=== PATIENT | female | born 1950 | race Caucasian/White ===

== ENCOUNTER 2017-07-21 17:19 | Observation (INO) | payer MEDICARE, OTHER ==
[2017-07-21] MEDS ORDERED: NITROGLYCERIN OINT 1 INCH/GM PACKET TOPICAL STA (18:07)
[2017-07-21] MEDS ORDERED: ASPIRIN 81 MG PO STA (18:07)
--- NOTE | 2017-07-21 18:10 | ED ---
General Adult HPI - General Chief complaint: Chest Pain Stated complaint: Chest pain Time Seen by Provider: 07/21/17 17:59 Source: patient, RN notes reviewed Mode of arrival: ambulatory Limitations: no limitations - History of Present Illness Initial comments: Patient is a pleasant 67-year-old female presenting to the emergency department complaining of chest discomfort. Onset of symptoms was a couple hours ago. Discomfort lasted around 1 hour and then resolved. Patient then had indigestion type sensation in her stomach which is mild at this time. No associated dyspnea, nausea, or vomiting. Chest discomfort felt more sharp earlier without radiation. No chest discomfort at this time. - Related Data Home Medications Medication Instructions Recorded Confirmed Ascorbic Acid [Vitamin C] 500 mg PO DAILY 02/10/14 07/21/17 B 17 1 tab PO TID 02/10/14 07/21/17 Ubidecarenone [Co Q-10] 100 mg PO DAILY 02/10/14 07/21/17 Anastrozole [Arimidex] 1 mg PO DAILY@1200 07/21/17 07/21/17 Reinbeck-3 Fatty Acids/Fish Oil [Fish 1 cap PO DAILY 07/21/17 07/21/17 Oil 1,000 mg Softgel] Allergies Allergy/AdvReac Type Severity Reaction Status Date / Time No Known Allergies Allergy Verified 07/21/17 17:45 Review of Systems ROS Statement: Those systems with pertinent positive or pertinent negative responses have been documented in the HPI. ROS Other: All systems not noted in ROS Statement are negative. Constitutional: Denies: fever Eyes: Denies: eye pain ENT: Denies: ear pain Respiratory: Denies: cough, dyspnea Cardiovascular: Reports: chest pain Endocrine: Denies: fatigue Gastrointestinal: Denies: vomiting Genitourinary: Denies: dysuria Musculoskeletal: Denies: back pain Skin: Denies: rash Neurological: Denies: weakness Past Medical History Past Medical History: Cancer, Chest Pain / Angina, Hyperlipidemia, Myocardial Infarction (CA), Syncope Additional Past Medical History / Comment(s): PT HAD CA SEPTEMBER 2012, R breast ca DIAGNOSED 2011, PT HAD SYNCOPAL EPISODE WITH CA. Last Myocardial Infarction Date:: 10/04/12 History of Any Multi-Drug Resistant Organisms: None Reported Past Surgical History: Heart Catheterization With Stent, Hysterectomy Additional Past Surgical History / Comment(s): SEPTEMBER 2012 CCATH WITH STENT X1. NECK CYST REMOVED AT AGE 7 YRS. HYSTERECTOMY IN 1995. Past Anesthesia/Blood Transfusion Reactions: No Reported Reaction Additional Past Anesthesia/Blood Transfusion Reaction / Comment(s): PT HAS NEVER HAD BLOOD-SHE IS A JEHOVA WITNESS Date of Last Stent Placement:: 10/04/12 Past Psychological History: No Psychological Hx Reported Smoking Status: Never smoker Past Alcohol Use History: None Reported Past Drug Use History: None Reported - Past Family History Father Family Medical History: Myocardial Infarction (CA) Additional Family Medical History / Comment(s): FATHER AT AGE 69 OF CA. HE WAS A SMOKER. Mother Family Medical History: Myocardial Infarction (CA) Additional Family Medical History / Comment(s): MOTHER WAS 69 YRS OF WHEN SHE OF AN CA. SHE WAS A SMOKER. General Exam Limitations: no limitations General appearance: alert, in no apparent distress Head exam: Present: atraumatic Eye exam: Present: normal appearance, PERRL ENT exam: Present: normal oropharynx Neck exam: Present: normal inspection Respiratory exam: Present: normal lung sounds bilaterally Cardiovascular Exam: Present: regular rate, normal rhythm Expanded Peripheral pulses: 2+: Radial (R), Radial (L), Dorsalis Pedis (R), Dorsalis Pedis (L) GI/Abdominal exam: Present: soft. Absent: distended, tenderness, guarding, rebound, rigid, pulsatile mass Extremities exam: Present: normal inspection. 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 Normal intervals. Normal axis. Borderline septal Q waves. Nonspecific ST-T. Medical Decision Making - Medical Decision Making Patient reevaluated and resting comfortably in bed. Patient and family updated on results and plan. Dr. Velazquez has been paged for admission. Case discussed in detail with Dr. Velazquez, who will admit his patient. No consults at this time. - Lab Data Result diagrams: 07/21/17 17:55 07/21/17 17:55 Lab Results 07/21/17 07/21/17 07/21/17 Range/Units 17:55 17:55 17:55 WBC 7.0 (3.8-10.6) k/uL RBC 4.36 (3.80-5.40) m/uL Hgb 13.1 (11.4-16.0) gm/dL Hct 40.7 (34.0-46.0) % MCV 93.2 (80.0-100.0) fL MCH 30.1 (25.0-35.0) pg MCHC 32.3 (31.0-37.0) g/dL RDW 12.8 (11.5-15.5) % Plt Count 211 (150-450) k/uL Neutrophils % 71 % Lymphocytes % 19 % Monocytes % 6 % Eosinophils % 2 % Basophils % 0 % Neutrophils # 5.0 (1.3-7.7) k/uL Lymphocytes # 1.3 (1.0-4.8) k/uL Monocytes # 0.4 (0-1.0) k/uL Eosinophils # 0.2 (0-0.7) k/uL Basophils # 0.0 (0-0.2) k/uL PT (9.0-12.0) sec INR (<1.2) APTT (22.0-30.0) sec Sodium 142 (137-145) mmol/L Potassium 4.4 (3.5-5.1) mmol/L Chloride 104 (98-107) mmol/L Carbon Dioxide 27 (22-30) mmol/L Anion Gap 11 mmol/L BUN 18 H (7-17) mg/dL Creatinine 0.80 (0.52-1.04) mg/dL Est GFR (CKD-EPI)AfAm 88 (>60 ml/min/1.73 sqM) Est GFR (CKD-EPI)NonAf 76 (>60 ml/min/1.73 sqM) Glucose 119 H (74-99) mg/dL Calcium 9.7 (8.4-10.2) mg/dL Magnesium 2.1 (1.6-2.3) mg/dL Total Bilirubin 0.2 (0.2-1.3) mg/dL AST 39 H (14-36) U/L ALT 27 (9-52) U/L Alkaline Phosphatase 66 (38-126) U/L Total Creatine Kinase 104 (30-135) U/L CK-MB (CK-2) 1.0 (0.0-2.4) ng/mL CK-MB (CK-2) Rel Index 1.0 Troponin I <0.012 (0.000-0.034) ng/mL Total Protein 6.8 (6.3-8.2) g/dL Albumin 4.2 (3.5-5.0) g/dL Amylase 82 (30-110) U/L Lipase 265 (23-300) U/L 07/21/17 Range/Units 17:55 WBC (3.8-10.6) k/uL RBC (3.80-5.40) m/uL Hgb (11.4-16.0) gm/dL Hct (34.0-46.0) % MCV (80.0-100.0) fL MCH (25.0-35.0) pg MCHC (31.0-37.0) g/dL RDW (11.5-15.5) % Plt Count (150-450) k/uL Neutrophils % % Lymphocytes % % Monocytes % % Eosinophils % % Basophils % % Neutrophils # (1.3-7.7) k/uL Lymphocytes # (1.0-4.8) k/uL Monocytes # (0-1.0) k/uL Eosinophils # (0-0.7) k/uL Basophils # (0-0.2) k/uL PT 9.9 (9.0-12.0) sec INR 1.0 (<1.2) APTT 23.6 (22.0-30.0) sec Sodium (137-145) mmol/L Potassium (3.5-5.1) mmol/L Chloride (98-107) mmol/L Carbon Dioxide (22-30) mmol/L Anion Gap mmol/L BUN (7-17) mg/dL Creatinine (0.52-1.04) mg/dL Est GFR (CKD-EPI)AfAm (>60 ml/min/1.73 sqM) Est GFR (CKD-EPI)NonAf (>60 ml/min/1.73 sqM) Glucose (74-99) mg/dL Calcium (8.4-10.2) mg/dL Magnesium (1.6-2.3) mg/dL Total Bilirubin (0.2-1.3) mg/dL AST (14-36) U/L ALT (9-52) U/L Alkaline Phosphatase (38-126) U/L Total Creatine Kinase (30-135) U/L CK-MB (CK-2) (0.0-2.4) ng/mL CK-MB (CK-2) Rel Index Troponin I (0.000-0.034) ng/mL Total Protein (6.3-8.2) g/dL Albumin (3.5-5.0) g/dL Amylase (30-110) U/L Lipase (23-300) U/L - Radiology Data Radiology results: image reviewed (Chest x-ray shows no acute process) Disposition Clinical Impression: Chest pain Disposition: ADMITTED IP TO THIS [facility] Referrals: Henrik Velazquez MD [Primary Care Provider] - 1-2 days Decision Time: 19:43
[2017-07-21 18:20] LABS: Basophils % (A) 0 %; Eosinophils # (A) 0.2 k/uL (0-0.7); Eosinophils % (A) 2 %; HCT 40.7 % (34.0-46.0); HGB 13.1 gm/dL (11.4-16.0); Lymphocytes # (A) 1.3 k/uL (1.0-4.8); Lymphocytes % (A) 19 %; MCH 30.1 pg (25.0-35.0); MCHC 32.3 g/dL (31.0-37.0); MCV 93.2 fL (80.0-100.0); Mean Platelet Volume 7.8; Monocytes # (A) 0.4 k/uL (0-1.0); Monocytes % (A) 6 %; Neutrophils % (A) 71 %; Platelet Count 211 k/uL (150-450); RBC 4.36 m/uL (3.80-5.40); RDW 12.8 % (11.5-15.5)
[2017-07-21 18:29] LABS: Partial Thromboplastin Time 23.6 sec (22.0-30.0); Prothrombin Time 9.9 sec (9.0-12.0)
[2017-07-21 18:31] LABS: Albumin 4.2 g/dL (3.5-5.0); Calcium 9.7 mg/dL (8.4-10.2); Magnesium 2.1 mg/dL (1.6-2.3); Potassium 4.4 mmol/L (3.5-5.1); Total Bilirubin 0.2 mg/dL (0.2-1.3); Total Protein 6.8 g/dL (6.3-8.2)
[2017-07-21 18:45] LABS: Creatine Kinase 104 U/L (30-135)
[2017-07-21 18:58] LABS: Troponin I <0.012 ng/mL (0.000-0.034)
--- NOTE | 2017-07-21 19:12 | XR ---
EXAMINATION TYPE: XR chest 2V DATE OF EXAM: 07/21/2017 COMPARISON: Prior chest 02/10/2014 HISTORY: Chest pain TECHNIQUE: Frontal and lateral views of the chest are obtained. FINDINGS: There is no focal air space opacity, pleural effusion, or pneumothorax seen. The cardiac silhouette size is within normal limits. There are overlying cardiac leads and the patient is rotated . The osseous structures are intact. IMPRESSION: No acute cardiopulmonary process.
[2017-07-21] MEDS ORDERED: NITROGLYCERIN SL TABS 0.4 MG TAB SUBLINGUAL PRN (19:43)
[2017-07-21] MEDS ORDERED: FAMOTIDINE 20 MG/2 ML VIAL IV STA (20:59)
--- NOTE | 2017-07-21 21:51 | US ---
EXAMINATION TYPE: US abdomen complete DATE OF EXAM: 07/21/2017 COMPARISON: NONE CLINICAL HISTORY: pain. Pt states generalized ABD pain and malaise EXAM MEASUREMENTS: Liver Length: 14.2 cm Gallbladder Wall: 0.3 cm CBD: 0.3 cm Spleen: 10.7 cm Right Kidney: 11.6 x 4.0 x 4.1 cm Left Kidney: 9.3 x 4.9 x 4.5 cm Pancreas: Solid, irregular mass at panc head= 5.0 x 3.7 x 4.9 cm Liver: Multiple, hypoechoic lesions scattered throughout, largest right anterior lobe near dome= 4.9 x 4.1 cm and liver shows coarse echotexture possibly due to hepatocellular disease Gallbladder: Contracted, pt not NPO Evidence for sonographic Rogers's sign: No CBD: wnl Spleen: wnl Right Kidney: Mild hydro and cortical measured differentiation is maintained. Left Kidney: Mild hydronephrosis suspected, cortical medullary differentiation maintained. Upper IVC: wnl Abd Aorta: wnl There is no ascites. IMPRESSION: Findings suggestive of pancreatic carcinoma with metastasis to the liver
[2017-07-21 23:15] VITALS: BMI 27.2
[2017-07-22 01:26] LABS: Creatine Kinase 84 U/L (30-135)
[2017-07-22] MEDS: NITROGLYCERIN OINT 1 INCH/GM PACKET TOPICAL SCH ×4 (01:27→17:38)
[2017-07-22 01:39] LABS: Creatine Kinase MB 0.7 ng/mL (0.0-2.4); Troponin I <0.012 ng/mL (0.000-0.034)
[2017-07-22 06:15] LABS: Cholesterol 246 mg/dL (<200); HDL Cholesterol 52 mg/dL (40-60); LDL Cholesterol,Calculated 174 mg/dL (0-99); Triglycerides 101 mg/dL (<150)
[2017-07-22 06:44] LABS: Creatine Kinase MB 0.7 ng/mL (0.0-2.4); Troponin I 0.013 ng/mL (0.000-0.034)
[2017-07-22] MEDS ORDERED: ASPIRIN 325 MG TAB PO SCH (09:00)
--- NOTE | 2017-07-22 15:02 | P.PN ---
Progress Note - Text Consult dictated Impression: 1- Pancreatic head mass with multiple liver lesions: Pancreatic Ca with Liver mets V/S Metastatic Breast Ca to Pancreas & liver. 2- R Breast Cancer, diagnosed 2011> declined surgical intervention > Started on Tamoxifen> Arimidex, plus Holistic treatment approach in [place] with High dose IV vitamin-C and Cantrel. Rec: 1- Reviewed U/S of abdomen findings with patient, daughter & grand daughter at bedside 2- Discussed likely malignancy: Pancreatic V/S metastatic Breast 3- CT Scan of CAP advised > she agrees 4- Advised CT-guided Bx of liver lesion > she declined due to scare about spreading cancer 5- Obtain CA19-9 and CA15-3 6- Can be discharged after CT Scan performed, will follow as out-patient and schedule Bx if she agrees to ( has to wait till after 07/27 due to ASA given this AM) I answered all questions/concerns
--- NOTE | 2017-07-22 15:52 | CONS ---
CONSULTATION DATE OF CONSULT: July 22, 2017. ADMITTING PHYSICIAN: Dr. Velazquez. REASON FOR CONSULTATION: Suspected malignancy. HISTORY OF ILLNESS: Lora is a pleasant 67-year-old female with prior history of right-sided breast cancer diagnosed in 2011. Then, the patient declined any local intervention. No surgery or radiation or systemic therapy performed locally. She opted to seek holistic alternative in [place], which she has been traveling to frequently. She was treated with endocrine therapy utilizing tamoxifen and more recently told tamoxifen was "not working." Thus, she was switched to Arimidex. In addition, she has received intravenous infusion of high-dose vitamin C as well as Nguyễn. The patient presented to the emergency room with abdominal pain of 1-2 days duration only. The pain is in the epigastric region, not radiating. She reported having similar discomfort 2 months ago which resolved spontaneously. She denies any anorexia or weight loss. No nausea or vomiting. No changes in bowel habits or any other GI symptoms. Ultrasound of the abdomen done in the emergency room revealed a pancreatic head mass measuring 5 cm as well as multiple liver lesions, the largest is in the right anterior lobe dome and near dome measuring 4.9 x 4.1 cm. The patient denies any knowledge of any prior pancreatic or hepatic abnormalities. Denies any history of liver disease. PAST MEDICAL HISTORY: 1. Right-sided breast cancer as stated above. 2. History of chest pain/angina without documented coronary artery disease. 3. Hyperlipidemia. PAST SURGICAL HISTORY: Coronary angiography and had a hysterectomy. CURRENT MEDICATIONS: Reviewed with the patient. SOCIAL HISTORY: The patient is a lifetime nonsmoker. Denies any excessive use of alcohol. FAMILY HISTORY: Noncontributory. REVIEW OF SYSTEMS: Abdominal pain as stated and no anorexia or weight loss or constitutional signs or symptoms of malignancy. No chest pain, shortness of breath. GI has symptoms of the abdominal pain. No polyuria, dysuria or gross hematuria. No musculoskeletal discomfort, focal weakness or numbness in the upper or lower extremities. EXAMINATION: The patient appeared alert and oriented. Skin is warm and dry. Hair distribution within normal for age and gender. He appeared to be healthy and well built. Blood pressure was 129/73, pulse is 77 and regular, respiratory rate was 16, not labored. Temperature was 98.1. There is no pathologic, cervical, supraclavicular, infraclavicular, or axillary lymphadenopathy. Trachea was in midline. Chest was clear with good air exchange bilaterally. HEART: Sounds are normal S1 and S2. There was no S3, rubs, or murmurs auscultated. Abdomen was soft with moderate epigastric tenderness. No rebound. The liver and spleen were not clinically palpable. No masses tenderness or inguinal lymphadenopathy. Breast examination was not performed. The patient choice. Neurologic examination showed no focal motor or sensory deficits. Cranial nerves 2-12 unremarkable. IMPRESSION: 1. Pancreatic head mass with multiple liver lesions. The finding is suspicious for either pancreatic carcinoma with liver metastases or metastatic breast cancer to both pancreas and liver, that later is more clinically suspected given lack of constitutional symptoms normally associated with metastatic pancreatic carcinoma. 2. Right-sided breast cancer diagnosed in 2011. She declined conventional therapy and opted for a holistic approach given in [place] in the form of high-dose intravenous vitamin C and Nguyễn in addition to an endocrine therapy with tamoxifen that was recently changed to Arimidex. 3. History of coronary artery disease, stable. RECOMMENDATION: 1. I reviewed ultrasound of the abdomen findings with the patient's daughter and granddaughter at the bedside. 2. Discussed the likely cause of malignancy either pancreatic versus metastatic breast cancer. 3. I recommended a CT scan of the chest, abdomen, and pelvis. The patient agrees. 4. Advice CT-guided biopsy of liver lesion. She strongly declined alleging worry about the biopsy needle spreading the cancer, the patient was reassured that spreading the cancer thru fine-needle biopsy is highly improbable. However, she insists on declining any biopsies stating that even if cancer was diagnosed, she is likely not to take any other treatment other than holistic approach given in [place]. 5. Obtain CA-19-9 and CA-15-3. 6. The patient can be discharged after a CT scan performed. 7. We will follow as an outpatient basis to schedule a biopsy if she agrees to. However, any intervention has to wait until after July 27 due to aspirin given as early as this morning. I answered the patient's family's questions and concerns to their satisfaction. Thank you for asking the privilege to participate in her care. Sincerely, MARLON / RADHAN: [id number] /
[2017-07-22 16:28] VITALS: BP 124/68; PULSE 86; RESP 14; TEMP 97.7
[2017-07-22] MEDS: IOPAMIDOL-300 CONTRAST 30 ML VIAL (ORAL USE) PO PRN ×2 (16:35→17:33)
--- NOTE | 2017-07-22 20:28 | HP ---
HISTORY AND PHYSICAL CHIEF COMPLAINT: Chest and abdominal pain. HISTORY OF PRESENT ILLNESS: This is another admission for this 67-year-old white female. She has a history of breast cancer. She has been receiving homeopathic treatment in [place]. She has gone quite a few years without any evidence of recurrence, which would leave one to question the accuracy of the original diagnosis. She came into the emergency room with complaint of chest and epigastric discomfort. She has had no fever, chills, cough, hemoptysis, orthopnea, PND, diaphoresis, shortness of breath, etc. There was also question of a mass in the pancreas. REVIEW OF SYSTEMS: Otherwise unremarkable. She has had no vomiting, diarrhea, melena, etc. Past medical history, family history, personal history are all otherwise unremarkable and noncontributory. PHYSICAL EXAMINATION: Blood pressure is 140/78 with a pulse of 62, respirations 19. She is afebrile. In general, she appeared to be well-developed, well-nourished, in no acute distress. Skin color is normal. Skin is warm, dry. Lymph nodes not enlarged. Head, ears, eyes, nose, mouth, and throat were normal and neck veins not distended. Thyroid is not enlarged. Chest is clear. Cardiac exam is normal. Abdomen is soft, nontender. IMPRESSION: 1. Chest pain. 2. Epigastric pain. 3. Possible mass in the pancreas. 4. History of breast cancer. PLAN: 1. Bed rest. 2. IV fluids. 3. Oncology consult. 4. Cardiology consult. MMYAAKOV / RADHAN: [id number] /
--- NOTE | 2017-07-22 21:36 | CT ---
EXAMINATION TYPE: CT ChestAbdPelvis wo con DATE OF EXAM: 07/22/2017 COMPARISON: 12/18/2012 HISTORY: Pancreatic mass. Right breast CA with liver mets CT DLP: 487.7 mGycm. Automated Exposure Control for Dose Reduction was Utilized. TECHNIQUE: CT scan of the thorax, abdomen and pelvis is performed without IV contrast. FINDINGS: RIGHT BREAST: 1.) The previously seen upper outer quadrant right breast mass now measures 3.0 x 2.7 cm, previously measured 2.8 x 2.5 cm in axial cross section. 2.) There is an associated right axillary lymph node currently which measures 2.7 x 1.6 cm in axial c ross section; this lymph node was subcentimeter size on the prior study. 3.) Finally, there is a lowe r outer quadrant 2.3 x 1.7 cm right breast mass, which is new since the prior CT. LUNGS: The lungs are clear and the airways are unremarkable. PLEURAL SPACES: Negative. MEDIASTINUM: No hilar or mediastinal adenopathy. Coronary calcifications noted, but no cardiomegaly o r pericardial effusion. LIVER/GB: High in the dome of the liver and anterior segment right hepatic lobe there is a 5.0 x 4.5 x 3.5 cm hypodense lesion, new since the previous study and most consistent with secondary neoplasm. There are a few scattered peripheral hypodense lesions elsewhere which are not conspicuous, but likel y reflect secondary neoplasm. PANCREAS: There is prominence to the pancreatic head consistent with the known mass, but its margins cannot be ascertained with the surrounding structures. There is, however, no biliary tree obstruction or pancreatic ductal obstruction. SPLEEN: No significant abnormality is seen. ADRENALS: No significant abnormality is seen. KIDNEYS: No significant abnormality is seen. Bilateral parapelvic cysts are incidentally noted. BOWEL: No significant abnormality is seen. GENITAL ORGANS: No gross abnormality seen. LYMPH NODES: No greater than 1cm abdominal or pelvic lymph nodes are appreciated. OSSEOUS STRUCTURES: No significant abnormality is seen. OTHER: No significant additional abnormality is seen. IMPRESSION: 1. RIGHT BREAST MASSES WITH ADENOPATHY. 2. PANCREATIC MASS WITH LIVER METASTASES. 3. CORONARY CALCIFICATIONS.
[2017-07-23 11:39] LABS: Cancer Antigen 19-9 16.7 U/mL (0.0-34.9)
[2017-07-23] MEDS ORDERED: ANASTROZOLE 1 MG TAB PO SCH (12:00)
--- NOTE | 2017-07-23 17:11 | DS ---
DISCHARGE SUMMARY DATE OF SERVICE: 07/22/2017. CHIEF COMPLAINT: Chest and abdominal pain. HISTORY OF PRESENT ILLNESS AND PHYSICAL EXAM: Details of this lady's history and physical can be found in the initial workup. LABORATORY STUDIES: While she was in the hospital, she had laboratory studies details of which can be found in the laboratory section of her chart. COURSE IN HOSPITAL: After admission, she was placed on bedrest, started on intravenous fluids and she enzymes and EKGs were unremarkable, but she did complain of epigastric pain and there was a report that there was a mass in the pancreas. She was seen by oncology, who recommended a biopsy, which can be done as an outpatient. The patient want to be discharged on the . FINAL DIAGNOSES: 1. Chest pain. 2. Nodule in the pancreas. 3. History of carcinoma of the breast. OPERATIONS: None. CONSULTATIONS: Oncology. She is improved. MMODL / RADHAN: [id number] /
== END 2017-07-22 18:55 | disposition home or self-care (01) ==
LOC: EC 17:19 → 3SUR 19:43
PROVIDERS: ADMIT Family Medicine; ATTEND Family Medicine
DX: R07.89 Other chest pain (principal); R10.13 Epigastric pain; K86.9 Disease of pancreas, unspecified; K76.9 Liver disease, unspecified; Z85.3 Personal history of malignant neoplasm of breast; E78.5 Hyperlipidemia, unspecified; I25.10 Atherosclerotic heart disease of native coronary artery without angina pectoris; Z95.5 Presence of coronary angioplasty implant and graft; I25.2 Old myocardial infarction; Z79.811 Long term (current) use of aromatase inhibitors; Z82.49 Family history of ischemic heart disease and other diseases of the circulatory system
CPT/HCPCS: 99285 ×2; 96374 ×2; 36415; 93005; 80061; 80053; 86300; 82150; 82550 ×2; 82553 ×2; 83690; 83735; 84484 ×2; 85025; 85610; 85730; 86301; 71046; 76700; 71250; 74176; G0378 ×2

== ENCOUNTER → 2018-01-11 | Outpatient (CLI) | payer MEDICARE, OTHER ==
--- NOTE | 2018-01-11 11:35 | CT ---
EXAMINATION TYPE: CT abdomen w con DATE OF EXAM: 01/11/2018 HISTORY: RUQ pain and hepatomegaly per order. CT DLP: 678mGycm Automated Exposure Control for Dose Reduction was Utilized. CONTRAST: CT scan of the abdomen is performed with oral and with IV Contrast, patient injected with 100 mL of I sovue 300. COMPARISON: Same-day gallbladder ultrasound. CT from July 22, 2017 FINDINGS: LUNG BASES: No significant abnormality is appreciated. LIVER/GB: Liver is larger in size versus prior CT. There are now innumerable heterogeneous hypodense lesions scattered throughout the liver with marked increase in number from prior exam. For reference a 4.9 cm lesion on long axis is seen in the caudate lobe axial image 19. For reference anterior left hepatic lobe lesion measures 4.2 cm long axis axial image 20. Gallbladder is contracted. There is better visualization of bao hepatic adenopathy due to IV contrast. There is mass effect of narrowing near the portal vein confluence but patency identified. PANCREAS: No significant abnormality is seen. SPLEEN: No significant abnormality is seen. ADRENALS: No significant abnormality is seen. KIDNEYS: Prominent parapelvic cysts bilaterally left larger than right are redemonstrated. BOWEL: No significant abnormality is seen. LYMPH NODES: Perihepatic adenopathy noted as detailed above.. OSSEOUS STRUCTURES: No significant abnormality is seen. OTHER: Mild to moderate calcified plaque of distal aorta extends into branch vessels. IMPRESSION: Marked progression in suspected metastatic disease to the liver which is now enlarged. Th ere is bao hepatic metastatic adenopathy also now better visualized.
--- NOTE | 2018-01-11 16:04 | US ---
EXAMINATION TYPE: US gallbladder DATE OF EXAM: 01/11/2018 COMPARISON: CT & US CLINICAL HISTORY: R10.11 Right upper quad pain,R16.0 Hepatomegaly. EXAM MEASUREMENTS: Liver Length: 16.6 cm Gallbladder Wall: 0.5 cm CBD: not visualized Right Kidney: 11.6 x 3.4 x 5.3 cm Pancreas: mass seen at pancreatic head measuring 5.7 x 4.9 x 4.2cm previous may be within the caudat e lobe CT examination. Liver: grossly heterogeneous with innumerable masses, upper limits of normal in size Gallbladder: wall thickening Evidence for sonographic Rogers's sign: no CBD: unable to visualize Right Kidney: ?mild hydro IMPRESSION: 1. Innumerable hypoechoic area within the liver compatible with fullness to irregular hypoechoic hete rogenous density anterosuperior to the head of the pancreas. On CT examination this appears to lie wi thin the caudate lobe.
== END | disposition home or self-care (01) ==
LOC: RADUSMAIN 08:47
PROVIDERS: ATTEND Family Medicine
DX: C78.7 Secondary malignant neoplasm of liver and intrahepatic bile duct (principal)
CPT/HCPCS: 82565; 84520; 76705; 74160; 36415; Q9967

== ENCOUNTER 2018-03-12 15:09 | Inpatient (IN) | payer MEDICARE, OTHER ==
--- NOTE | 2018-03-12 16:29 | ED ---
General Adult HPI - General Chief complaint: Shortness of Breath Stated complaint: weakness/SOB Time Seen by Provider: 03/12/18 16:15 Source: patient Mode of arrival: wheelchair Limitations: no limitations - History of Present Illness Initial comments: 67-year-old female past medical history of breast cancer currently on tamoxifen , previous OR presenting today for chief complaint of shortness of breath increasing for the past 1-2 weeks. Patient states that she has noticed for the past 2 weeks increasing shortness of breath especially with ambulation. Patient denies any calf pain but has noted bilateral foot swelling to 3 days ago. Patient denies any recent travel, history of blood clots or use of anticoagulation. In addition patient notes right upper quadrant pain, she states she does have a history of liver enlargement with possible liver metastasis from breast cancer. She states that this pain however has been increasing for the past 2-3 weeks. Patient does state that she has been nauseous, she denies any chest pain, vomiting, melena, hematochezia, lower abdominal pain, cough, congestion, fever, chills, night sweats, rigors, sputum production, no rash, vaginal bleeding, dizziness, headache, confusion, upper or lower sure ease paresthesias, jaw pain, epigastric pain, back pain, visual changes, speech changes or any other associated symptoms. Upon arrival patient appears stable. Vital signs within acceptable limits, repeat heart rate 105. EKG revealed sinus tachycardia. - Related Data Home Medications Medication Instructions Recorded Confirmed B 17 1 tab PO TID 02/10/14 03/12/18 Tamoxifen [Nolvadex] 10 mg PO DAILY 03/12/18 03/12/18 Allergies Allergy/AdvReac Type Severity Reaction Status Date / Time No Known Allergies Allergy Verified 03/12/18 16:30 Review of Systems ROS Statement: Those systems with pertinent positive or pertinent negative responses have been documented in the HPI. ROS Other: All systems not noted in ROS Statement are negative. Constitutional: Denies: fever, chills, night sweats Eyes: Denies: vision change ENT: Denies: ear pain, throat pain Respiratory: Reports: dyspnea. Denies: cough, wheezes, hemoptysis, stridor Cardiovascular: Reports: dyspnea on exertion, edema (b/l feet). Denies: chest pain, palpitations Past Medical History Past Medical History: Cancer, Chest Pain / Angina, Hyperlipidemia, Myocardial Infarction (OR), Syncope Additional Past Medical History / Comment(s): PT HAD OR SEPTEMBER 2012, R breast ca DIAGNOSED 2011, PT HAD SYNCOPAL EPISODE WITH OR. Last Myocardial Infarction Date:: 10/04/12 History of Any Multi-Drug Resistant Organisms: None Reported Past Surgical History: Heart Catheterization With Stent, Hysterectomy Additional Past Surgical History / Comment(s): SEPTEMBER 2012 CCATH WITH STENT X1. NECK CYST REMOVED AT AGE 7 YRS. HYSTERECTOMY IN 1995. Past Anesthesia/Blood Transfusion Reactions: No Reported Reaction Additional Past Anesthesia/Blood Transfusion Reaction / Comment(s): PT HAS NEVER HAD BLOOD-SHE IS A JEHOVA WITNESS Date of Last Stent Placement:: 10/04/12 Past Psychological History: No Psychological Hx Reported Smoking Status: Never smoker Past Alcohol Use History: None Reported Past Drug Use History: None Reported - Past Family History Father Family Medical History: Myocardial Infarction (OR) Additional Family Medical History / Comment(s): FATHER AT AGE 69 OF OR. HE WAS A SMOKER. Mother Family Medical History: Myocardial Infarction (OR) Additional Family Medical History / Comment(s): MOTHER WAS 69 YRS OF WHEN SHE OF AN OR. SHE WAS A SMOKER. General Exam - General Exam Comments Initial Comments: General: The patient is awake and alert, in no distress, and does not appear acutely ill. Eye: Pupils are equal, round and reactive to light, extra-ocular movements are intact. No nystagmus. There is normal conjunctiva bilaterally. No signs of icterus. Ears, nose, mouth and throat: There are moist mucous membranes and no oral lesions. Neck: The neck is supple, there is no tenderness or JVD. Cardiovascular: There is a regular rate and rhythm. No murmur, rub or gallop is appreciated. Respiratory: Respirations are non-labored, breath sounds are equal. Decrease breath sounds b/l. No wheezes, stridor, rales, or rhonchi. Fine crackles audible at lung bases b/l. Gastrointestinal: No noted diaphoresis, jaundice, pallor, protecting postures or squirming. Symmetrical pigmentation of abdomen without signs of inflammation, or striae. Umbilicus mildline, inverted without swelling. No dilated veins. No noted abdominal distention. No visible masses. No peristalsis, aortic pulsations, or ventral hernia. Bowel sounds audible in all 4 quadrants, unremarkable. No friction rubs or venous hums. No epigastic, hepatic or abdominal bruits. RUQ pain has mild tenderness to palpation of the liver. No tenderness to light or deep palpation of the LUQ, LLQ, RLQ, or pelvic pain. Liver edge, palpable/ enlarged tender to palpation. Spleen edge, right and left kidney not palpable. Superior bladder margin non-tender. Special Testing: Negative shifting dullness, fluid wave, [place], [place], [place], [place], cutaneous hyperesthesia. Iliopsoas and obturator tests negative bilaterally. Negative Heel Jar test/musa sign. No CVA tenderness. Digital rectal exam deferred. Negative fleming turners or cullens sign Musculoskeletal: Normal ROM, no tenderness. Strength 5/5. Sensation intact. Radial pulses equal bilaterally 2+. Neurological: A&O x 3. CN II-XII intact, There are no obvious motor or sensory deficits. Coordination appears grossly intact. Speech is normal. Skin: Skin is warm and dry and no rashes or lesions are noted. Psychiatric: Cooperative, appropriate mood & affect, normal judgment. Limitations: no limitations Course Vital Signs 03/12/18 03/12/18 03/12/18 15:12 18:29 20:00 Temperature 97.4 F L Pulse Rate 74 93 100 Respiratory 20 18 18 Rate Blood Pressure 110/74 114/70 121/73 O2 Sat by Pulse 98 97 96 Oximetry 03/12/18 03/12/18 21:00 22:00 Temperature 97.8 F Pulse Rate 101 H 99 Respiratory 18 18 Rate Blood Pressure 102/67 131/78 O2 Sat by Pulse 95 96 Oximetry EKG Findings - EKG Comments: EKG Findings:: A 12-lead EKG was performed and shows the following: Rate is 105 , and rhythm is normal sinus. There are normal QRS complexes and normal R-wave progression. ST segments have no elevation or depression, and [place] segments appear normal. nonspecific change noted. Sinus tachycardia Medical Decision Making - Medical Decision Making Cardiac enzymes (-), EKG no acute findings. D-Dimer 10/31. CXR revealed pleural effusion and bibasilar atelectasis. CTA negative for pulmonary embolus however it revealed bilateral pleural effusions as well as bibasal partial atelectasis. Given the bibasilar partial atelectasis I'm concerned for a basilar pneumonia. In addition the large breast masses were redemonstrated from previous study which is increased in size since previous study as well as enlargement of the liver from previous study with innumerable lesions throughout. pt is aware of all findings, stating she knows she has liver METS from recent appointment at her alternative therapy treatment in [place]. Pt placed on telemetry. Lactic Acid WNL. WBC WNL. Pt appears nontoxic, however given comorbities, I feel pt should be admitted for bibasilar pneumonia. Case discussed in detail with Dr. Bradley who agreed with impression and plan reviewing all laboratory values and imaging studies. Pt started on levofloxacin. Dr. Bradley spoke with Dr. Velazquez who accepted admission. We consulted oncologist Dr. Rodney. Pt remained stable/ comfortable upon multiple reexamination, continues to deny chest pain or worsening SOB. Pt admitted to floor in stable condition. - Lab Data Result diagrams: 03/12/18 16:25 03/12/18 16:25 Lab Results 03/12/18 03/12/18 03/12/18 Range/Units 16:25 16:25 16:25 WBC 7.2 (3.8-10.6) k/uL RBC 4.04 (3.80-5.40) m/uL Hgb 11.8 (11.4-16.0) gm/dL Hct 37.3 (34.0-46.0) % MCV 92.4 (80.0-100.0) fL MCH 29.3 (25.0-35.0) pg MCHC 31.7 (31.0-37.0) g/dL RDW 14.9 (11.5-15.5) % Plt Count 396 (150-450) k/uL Neutrophils % 76 % Lymphocytes % 15 % Monocytes % 6 % Eosinophils % 2 % Basophils % 0 % Neutrophils # 5.5 (1.3-7.7) k/uL Lymphocytes # 1.1 (1.0-4.8) k/uL Monocytes # 0.4 (0-1.0) k/uL Eosinophils # 0.2 (0-0.7) k/uL Basophils # 0.0 (0-0.2) k/uL PT (9.0-12.0) sec INR (<1.2) APTT (22.0-30.0) sec D-Dimer (<0.60) mg/L FEU Sodium 136 L (137-145) mmol/L Potassium 4.6 (3.5-5.1) mmol/L Chloride 102 (98-107) mmol/L Carbon Dioxide 26 (22-30) mmol/L Anion Gap 8 mmol/L BUN 8 (7-17) mg/dL Creatinine 0.75 (0.52-1.04) mg/dL Est GFR (CKD-EPI)AfAm >90 (>60 ml/min/1.73 sqM) Est GFR (CKD-EPI)NonAf 82 (>60 ml/min/1.73 sqM) Glucose 109 H (74-99) mg/dL Plasma Lactic Acid Elvin (0.7-2.0) mmol/L Calcium 8.5 (8.4-10.2) mg/dL Magnesium 2.2 (1.6-2.3) mg/dL Total Bilirubin 1.1 (0.2-1.3) mg/dL AST 120 H (14-36) U/L ALT 65 H (9-52) U/L Alkaline Phosphatase 228 H (38-126) U/L Total Creatine Kinase 59 (30-135) U/L CK-MB (CK-2) 0.9 (0.0-2.4) ng/mL CK-MB (CK-2) Rel Index 1.5 Troponin I 0.016 (0.000-0.034) ng/mL Total Protein 5.7 L (6.3-8.2) g/dL Albumin 2.8 L (3.5-5.0) g/dL 03/12/18 03/12/18 Range/Units 16:25 18:44 WBC (3.8-10.6) k/uL RBC (3.80-5.40) m/uL Hgb (11.4-16.0) gm/dL Hct (34.0-46.0) % MCV (80.0-100.0) fL MCH (25.0-35.0) pg MCHC (31.0-37.0) g/dL RDW (11.5-15.5) % Plt Count (150-450) k/uL Neutrophils % % Lymphocytes % % Monocytes % % Eosinophils % % Basophils % % Neutrophils # (1.3-7.7) k/uL Lymphocytes # (1.0-4.8) k/uL Monocytes # (0-1.0) k/uL Eosinophils # (0-0.7) k/uL Basophils # (0-0.2) k/uL PT 11.3 (9.0-12.0) sec INR 1.2 H (<1.2) APTT 25.0 (22.0-30.0) sec D-Dimer 7.04 H (<0.60) mg/L FEU Sodium (137-145) mmol/L Potassium (3.5-5.1) mmol/L Chloride (98-107) mmol/L Carbon Dioxide (22-30) mmol/L Anion Gap mmol/L BUN (7-17) mg/dL Creatinine (0.52-1.04) mg/dL Est GFR (CKD-EPI)AfAm (>60 ml/min/1.73 sqM) Est GFR (CKD-EPI)NonAf (>60 ml/min/1.73 sqM) Glucose (74-99) mg/dL Plasma Lactic Acid Elvin 1.1 (0.7-2.0) mmol/L Calcium (8.4-10.2) mg/dL Magnesium (1.6-2.3) mg/dL Total Bilirubin (0.2-1.3) mg/dL AST (14-36) U/L ALT (9-52) U/L Alkaline Phosphatase (38-126) U/L Total Creatine Kinase (30-135) U/L CK-MB (CK-2) (0.0-2.4) ng/mL CK-MB (CK-2) Rel Index Troponin I (0.000-0.034) ng/mL Total Protein (6.3-8.2) g/dL Albumin (3.5-5.0) g/dL Disposition Clinical Impression: CAP (community acquired pneumonia), Pleural effusion, Breast cancer Disposition: ADMITTED IP TO THIS HOSP Condition: Stable Is patient prescribed a controlled substance at d/c from ED?: No Time of Disposition: 19:52 Decision to Admit Reason: Admit from EC Decision Date: 03/12/18 Decision Time: 19:53
[2018-03-12 16:46] LABS: Basophils % (A) 0 %; Eosinophils # (A) 0.2 k/uL (0-0.7); Eosinophils % (A) 2 %; HCT 37.3 % (34.0-46.0); HGB 11.8 gm/dL (11.4-16.0); Lymphocytes # (A) 1.1 k/uL (1.0-4.8); Lymphocytes % (A) 15 %; MCH 29.3 pg (25.0-35.0); MCHC 31.7 g/dL (31.0-37.0); MCV 92.4 fL (80.0-100.0); Mean Platelet Volume 7.4; Monocytes # (A) 0.4 k/uL (0-1.0); Monocytes % (A) 6 %; Neutrophils # (A) 5.5 k/uL (1.3-7.7); Neutrophils % (A) 76 %; Platelet Count 396 k/uL (150-450); RBC 4.04 m/uL (3.80-5.40); RDW 14.9 % (11.5-15.5); WBC 7.2 k/uL (3.8-10.6)
[2018-03-12 16:55] LABS: ALT 65 U/L (9-52); AST 120 U/L (14-36); Albumin 2.8 g/dL (3.5-5.0); Alkaline Phosphatase 228 U/L (38-126); Anion Gap 8 mmol/L; Blood Urea Nitrogen 8 mg/dL (7-17); Calcium 8.5 mg/dL (8.4-10.2); Carbon Dioxide 26 mmol/L (22-30); Chloride 102 mmol/L (98-107); Glucose 109 mg/dL (74-99); Magnesium 2.2 mg/dL (1.6-2.3); Potassium 4.6 mmol/L (3.5-5.1); Sodium 136 mmol/L (137-145); Total Bilirubin 1.1 mg/dL (0.2-1.3); Total Protein 5.7 g/dL (6.3-8.2)
--- NOTE | 2018-03-12 16:58 | XR ---
EXAMINATION: XR chest 2V DATE AND TIME: 03/12/2018 4:49 PM CLINICAL INDICATION: difficulty breathing TECHNIQUE: PA and lateral COMPARISON: July 21, 2017 FINDINGS: The pleural spaces show blunting of the costophrenic angles bilaterally, consistent with interval dev elopment of small bilateral pleural effusions, greater on the right. There is associated partial airl essness in the lung bases, consistent with moderate volume of passive bibasilar atelectasis. Concurre nt basilar bronchopneumonia can be clinically considered. The mid and upper lungs are bilaterally clear. The cardiac silhouette is not enlarged. The remainder of the mediastinal silhouette is unremarkable. The skeletal structures and soft tissues are negative for acute findings. IMPRESSION: BILATERAL PLEURAL EFFUSIONS WITH BIBASILAR PASSIVE AIRLESSNESS.
[2018-03-12 17:09] LABS: INR 1.2 (<1.2); Prothrombin Time 11.3 sec (9.0-12.0)
[2018-03-12 17:11] LABS: Creatine Kinase MB 0.9 ng/mL (0.0-2.4); Troponin I 0.016 ng/mL (0.000-0.034)
[2018-03-12 17:17] LABS: D-Dimer 7.04 mg/L FEU (<0.60)
[2018-03-12] MEDS ORDERED: SODIUM CHLORIDE 0.9% 500 ML 500 ML IV ONE (18:06)
--- NOTE | 2018-03-12 18:17 | CT ---
EXAMINATION TYPE: CT angio chest with contrast and with 3-D reconstruction renderings DATE OF EXAM: 03/12/2018 5:44 PM COMPARISON: 07/22/2017 HISTORY: Shortness of breath, history of breast cancer. CT DLP: 203.4 mGycm Automated exposure control for dose reduction was used. CONTRAST: CTA scan of the thorax is performed with IV Contrast, patient injected with 62 mL of Isovue 370, pulmonary embolism protocol. 3-D reconstructions FINDINGS: AIRWAYS: The airways are patent. LUNGS AND PLEURAL SPACES: There is a bibasilar partial atelectasis, greater on the right, associated with bilateral pleural effusions, mild-moderate on the right and scant on the left. Concurrent basila r pneumonia can be clinically considered. Ventricular the lungs are clear bilaterally. MEDIASTINUM/TOMER: Pulmonary arterial tree is widely patent, without filling defects to suggest pulmon juan carlos emboli. There is mild cardiomegaly. Minimal pericardial effusion noted. No acute aortic findings. No mediastinal or hilar adenopathy. SKELETAL STRUCTURES: No acute process. OTHER: There are multilobulated breast masses, which have increased in size, now measuring 4 and 2 an d 4 cm mean diameter, with a right axillary lymph node mass measuring 4 x 3 x 2 cm. Liver is more enl arged than the prior study, with innumerable lesions throughout. IMPRESSION: 1) NEGATIVE FOR PULMONARY EMBOLI. 2) RIGHT PLEURAL EFFUSION WITH BIBASILAR PARTIAL AIRLESSNESS - GREATER ON THE RIGHT.
[2018-03-12] MEDS ORDERED: LEVOFLOXACIN 750MG-D5W PMX 750 MG in DEXTROSE/WATER 1 150ML.BAG IVPB STA (19:40)
[2018-03-12] MEDS ORDERED: NALOXONE 0.4 MG/ML 1 ML VIAL IV PRN (19:46)
[2018-03-12] MEDS: SODIUM CHLORIDE 0.9% 1,000 ML IV SCH (21:02)
[2018-03-13] MEDS: SODIUM CHLORIDE 0.9% 1,000 ML IV SCH ×2 (09:38→21:33)
[2018-03-13] MEDS: TAMOXIFEN 10 MG TAB PO SCH (11:26)
--- NOTE | 2018-03-13 13:29 | HP ---
HISTORY AND PHYSICAL CHIEF COMPLAINT: Fever and shortness of breath. HISTORY OF PRESENT ILLNESS: This is another admission for this 67-year-old white female. She has a long-standing history of breast carcinoma, which she has treated for in [place]. She has obviously been getting homeopathic treatment. She has been told this in the past and has continued to receive her care there. She recently came into the office complaining of loss of appetite, discomfort in the upper abdomen, and she has multiple, large metastases to the liver. She is told this and she refuses any care. She came into the emergency room because she started to have shortness of breath and was thought that she probably had a pneumonia. REVIEW OF SYSTEMS: She has had no neurologic problems, change in vision or the hearing, hemoptysis, sputum production, heart disease, rheumatic fever, murmurs, abdominal pain, nausea, vomiting, hematemesis, melena, hematochezia, jaundice, hematuria, frequency, urgency, renal disease, diabetes, etc. Past medical history, family history and personal and social histories are otherwise unremarkable and noncontributory. Medications that she is on include: 1. Anastrozole 1 mg once a day. 2. [place]-3. 3. Estro-dim. 4. Wobenzym. 5. Vitamin D. 6. [place]. 7. Aspirin 325 once a day. 8. Nitrostat p.r.n. 9. Coenzyme Q10. 10.B complex with vitamin C. 11.Separate vitamin C. 12.B 17. She has had a myocardial infarction in the past and she has and history of cataracts. She has had 5 pregnancies and 5 deliveries. She has had a surgery for ectopic and she had a hysterectomy. She has never smoked. PHYSICAL EXAMINATION: Blood pressure 114/70, pulse 70, respirations 14, temperature 99. GENERAL: She appeared to be slightly pale and in no acute distress. Skin is dry and lymph nodes not enlarged. Head, ears, eyes, nose, mouth, and throat were normal. Neck veins not distended. Thyroid is not enlarged. Chest is clear and cardiac exam is normal. The abdomen is soft, nontender. EXTREMITIES: Normal. NEUROLOGICAL: She is intact. IMPRESSION: 1. Pneumonitis. 2. Metastatic carcinoma of the breast. 3. History of hypertension. 4. History of coronary artery disease. 5. History of hyperlipidemia. PLAN: 1. Bed rest. 2. IV fluids. 3. IV antibiotics. 4. Updrafts. 5. DNR. She requests this, once again, once assurance that she will not be referred to Radiation or oncology for treatment. MARLON / PATRICIA: [id number] /
--- NOTE | 2018-03-13 13:35 | PN ---
PROGRESS NOTE DATE OF SERVICE: 03/13/2018 CHIEF COMPLAINT: Pneumonitis and CA of the breast. HISTORY OF PRESENT ILLNESS: This lady is fairly comfortable. Temperature has been down. PHYSICAL EXAM: Her chest is quite clear. Cardiac exam is normal. The abdomen demonstrates her liver mass. IMPRESSION: 1. Pneumonitis. 2. Metastatic carcinoma of the breast. PLAN: 1. Continue with IV fluids and antibiotics. 2. She requests to be DNR and this is granted. MMODL / IJN: [id number] /
[2018-03-13] MEDS ORDERED: [UNRECOGNIZED DRUG - OTHER] PO SCH (16:00)
[2018-03-13] MEDS ORDERED: LEVOFLOXACIN 750MG-D5W PMX 750 MG in DEXTROSE/WATER 1 150ML.BAG IVPB SCH (21:00)
[2018-03-14] MEDS: TAMOXIFEN 10 MG TAB PO SCH (07:51)
[2018-03-14] MEDS ORDERED: TAMOXIFEN 10 MG TAB PO SCH (09:00)
[2018-03-14] MEDS: traMADol 50 MG TAB PO SCH ×4 (12:30→21:18)
[2018-03-14] MEDS: SODIUM CHLORIDE 0.9% 1,000 ML IV SCH (12:31)
[2018-03-14 15:39] VITALS: RESP 16
--- NOTE | 2018-03-14 18:30 | PN ---
PROGRESS NOTE DATE OF SERVICE: 03/14/2018. CHIEF COMPLAINT: Pneumonitis. HISTORY OF PRESENT ILLNESS: This lady is doing fairly well. She is not particularly short of breath. She is starting to have quite a bit of abdominal pain due to the neoplasm in the liver, and we will start her on Ultram. She is very concerned about being kept comfortable. PHYSICAL EXAMINATION: Her chest is fairly clear. Cardiac exam is normal. She is fairly tender over the right upper quadrant, where the liver is quite enlarged and firm. IMPRESSION: 1. Pneumonitis. 2. Metastatic carcinoma of the breast. PLAN: Start Ultram to see if this holds her pain at all. She can probably go home tomorrow. MMODL / IJN: [id number] /
[2018-03-14] MEDS ORDERED: LEVOFLOXACIN 750 MG TAB PO SCH (21:00)
[2018-03-15] MEDS: SODIUM CHLORIDE 0.9% 1,000 ML IV SCH ×2 (02:15→14:46)
[2018-03-15 05:46] VITALS: BP 123/74; PULSE 79; TEMP 97
[2018-03-15] MEDS: TAMOXIFEN 10 MG TAB PO SCH (07:56)
[2018-03-15] MEDS: traMADol 50 MG TAB PO SCH (07:57)
--- NOTE | 2018-03-16 16:07 | DS ---
DISCHARGE SUMMARY CHIEF COMPLAINT: Bronchopneumonia. HISTORY OF PRESENT ILLNESS AND PHYSICAL EXAMINATION: Details of this lady's history and physical can be found in the initial workup. LABORATORY STUDIES: While she was in the hospital she had laboratory studies, details of which can be found in the laboratory section of her chart. COURSE IN THE HOSPITAL: After admission she was placed on bedrest, started on intravenous fluids, updrafts and antibiotics, and she did well. She was having some abdominal pain due to her liver metastases and wanted to know about pain medication. She was started on Ultram but then decided that she really did not want to take anything until she absolutely needed it. She is aware of her diagnosis and is still refusing consultation with Oncology. She was doing well and it was felt that she could go home independently. We will see her in the office in several days. FINAL DIAGNOSES: 1. Bronchopneumonia. 2. Metastatic carcinoma of the breast. OPERATIONS: None. CONSULTATIONS: None. She is improved. MMODL / IJN: [id number] /
== END 2018-03-15 15:43 | disposition home or self-care (01) | DRG 194 ==
LOC: EC 15:09 → 3NMEDONC 19:53 → 4MS4W 21:06
PROVIDERS: ADMIT Family Medicine; ATTEND Family Medicine
DX: J18.0 Bronchopneumonia, unspecified organism (principal); C78.7 Secondary malignant neoplasm of liver and intrahepatic bile duct; J90 Pleural effusion, not elsewhere classified; J98.11 Atelectasis; C50.911 Malignant neoplasm of unspecified site of right female breast; E78.5 Hyperlipidemia, unspecified; G89.3 Neoplasm related pain (acute) (chronic); I10 Essential (primary) hypertension; I25.10 Atherosclerotic heart disease of native coronary artery without angina pectoris; I25.2 Old myocardial infarction; Z66 Do not resuscitate; Z79.810 Long term (current) use of selective estrogen receptor modulators (SERMs); Z79.82 Long term (current) use of aspirin; Z79.899 Other long term (current) drug therapy; Z90.710 Acquired absence of both cervix and uterus; Z95.5 Presence of coronary angioplasty implant and graft; Z82.49 Family history of ischemic heart disease and other diseases of the circulatory system
CPT/HCPCS: 36415; 71046; 71275; 80053; 82550; 82553; 83605; 83735; 84484; 85025; 85379; 85610; 85730; 93005; 96361; 96365; 96366; 99285

== ENCOUNTER 2018-07-12 11:33 | Observation (INO) | payer MEDICARE, OTHER ==
[2018-07-12] MEDS ORDERED: NITROGLYCERIN OINT 1 INCH/GM PACKET TOPICAL STA (12:19)
[2018-07-12] MEDS ORDERED: ASPIRIN 81 MG PO STA (12:19)
--- NOTE | 2018-07-12 12:23 | ED ---
General Adult HPI - General Chief complaint: Chest Pain Stated complaint: Not felling well, heart concerns Time Seen by Provider: 07/12/18 11:45 Source: patient, RN notes reviewed Mode of arrival: wheelchair Limitations: no limitations - History of Present Illness Initial comments: This is a 68-year-old female presents emergency department with past medical history significant for metastatic breast cancer. Patient states his metastatic to liver. Patient states yesterday she had chest pain lasted 10 minutes it causes her to be short of breath and it radiated to her back. It subsided. Patient states that last evening at 4 AM she started having chest pain again radiated to her back she became short of breath it subsided to a discomfort in her chest but it still remains. Patient denies being short of breath at this time. Patient denies any diaphoretic episodes. Patient denies any nausea. Patient denies any vomiting or diarrhea recently. Patient denies any fever chills or cough. Patient denies any lightheadedness dizziness or near syncopal episode. - Related Data Home Medications Medication Instructions Recorded Confirmed B 17 1 tab PO TID 02/10/14 07/12/18 Tamoxifen [Nolvadex] 10 mg PO DAILY 03/12/18 07/12/18 Ascorbic Acid [Vitamin C] 1,000 mg PO DAILY 07/12/18 07/12/18 Liver/Galbladder Suppl Unknown 1 tab PO DAILY 07/12/18 07/12/18 Thyroid Med (Unknown) 1 tab PO DAILY 07/12/18 07/12/18 Tumeric (Unknown) 1 tab PO DAILY 07/12/18 07/12/18 Ubidecarenone [Co Q-10] 100 mg PO DAILY 07/12/18 07/12/18 Allergies Allergy/AdvReac Type Severity Reaction Status Date / Time No Known Allergies Allergy Verified 07/12/18 12:14 Review of Systems ROS Statement: Those systems with pertinent positive or pertinent negative responses have been documented in the HPI. ROS Other: All systems not noted in ROS Statement are negative. Past Medical History Past Medical History: Cancer, Chest Pain / Angina, Hyperlipidemia, Myocardial Infarction ([place]), Syncope Additional Past Medical History / Comment(s): PT HAD LA SEPTEMBER 2012, R breast ca DIAGNOSED 2011, PT HAD SYNCOPAL EPISODE WITH LA. Last Myocardial Infarction Date:: 10/04/12 History of Any Multi-Drug Resistant Organisms: None Reported Past Surgical History: Heart Catheterization With Stent, Hysterectomy Additional Past Surgical History / Comment(s): SEPTEMBER 2012 CCATH WITH STENT X1. NECK CYST REMOVED AT AGE 7 YRS. HYSTERECTOMY IN 1995. Past Anesthesia/Blood Transfusion Reactions: No Reported Reaction Additional Past Anesthesia/Blood Transfusion Reaction / Comment(s): PT HAS NEVER HAD BLOOD-SHE IS A JEHOVA WITNESS Date of Last Stent Placement:: 10/04/12 Past Psychological History: No Psychological Hx Reported Smoking Status: Never smoker Past Alcohol Use History: None Reported Past Drug Use History: None Reported - Past Family History Father Family Medical History: Myocardial Infarction ([place]) Additional Family Medical History / Comment(s): FATHER AT AGE 69 OF [place]. HE WAS A SMOKER. Mother Family Medical History: Myocardial Infarction ([place]) Additional Family Medical History / Comment(s): MOTHER WAS 69 YRS OF WHEN SHE OF AN [place]. SHE WAS A SMOKER. General Exam - General Exam Comments Initial Comments: GENERAL: Patient is well-developed and well-nourished. Patient is nontoxic and well- hydrated and is in mild distress. ENT: Neck is soft and supple. No significant lymphadenopathy is noted. Oropharynx is clear. Moist mucous membranes. Neck has full range of motion without eliciting any pain. EYES: The sclera were anicteric and conjunctiva were pink and moist. Extraocular movements were intact and pupils were equal round and reactive to light. Eyelids were unremarkable. PULMONARY: Unlabored respirations. Good breath sounds bilaterally. No audible rales rhonchi or wheezing was noted. CARDIOVASCULAR: There is a regular rate and rhythm without any murmurs gallops or rubs. ABDOMEN: Soft and nontender with normal bowel sounds. Patient has hepatomegaly SKIN: Skin is clear with no lesions or rashes and otherwise unremarkable. NEUROLOGIC: Patient is alert and oriented x3. Cranial nerves II through XII are grossly intact. Motor and sensory are also intact. Normal speech, volume and content. Symmetrical smile. MUSCULOSKELETAL: Normal extremities with adequate strength and full range of motion. 1+ bilaterally LYMPHATICS: No significant lymphadenopathy is noted PSYCHIATRIC: Normal psychiatric evaluation. Limitations: no limitations Course Vital Signs 07/12/18 07/12/18 11:43 13:33 Temperature 97.9 F Pulse Rate 91 87 Respiratory 18 18 Rate Blood Pressure 119/76 122/83 O2 Sat by Pulse 97 98 Oximetry Medical Decision Making - Medical Decision Making EKG shows normal sinus rhythm at 91 bpm DE interval is on a 58 QRS is 78 QT interval 352 QTC is 432. Patient has no ST segment elevation or depression or T wave abnormalities are noted Chest x-ray shows no acute abnormality. Patient's chest pain has improved. I spoke with Dr. Bennett and he wanted the patient admitted. - Lab Data Result diagrams: 07/12/18 12:57 07/12/18 12:57 Lab Results 07/12/18 07/12/18 07/12/18 Range/Units 12:57 12:57 12:57 WBC 4.2 (3.8-10.6) k/uL RBC 3.64 L (3.80-5.40) m/uL Hgb 11.5 (11.4-16.0) gm/dL Hct 37.7 (34.0-46.0) % MCV 103.6 H (80.0-100.0) fL MCH 31.7 (25.0-35.0) pg MCHC 30.6 L (31.0-37.0) g/dL RDW 14.1 (11.5-15.5) % Plt Count 315 (150-450) k/uL Neutrophils % 65 % Lymphocytes % 20 % Monocytes % 8 % Eosinophils % 4 % Basophils % 1 % Neutrophils # 2.7 (1.3-7.7) k/uL Lymphocytes # 0.8 L (1.0-4.8) k/uL Monocytes # 0.3 (0-1.0) k/uL Eosinophils # 0.2 (0-0.7) k/uL Basophils # 0.0 (0-0.2) k/uL Macrocytosis Slight PT 10.7 (9.0-12.0) sec INR 1.0 (<1.2) APTT 24.5 (22.0-30.0) sec Sodium 137 (137-145) mmol/L Potassium 5.0 (3.5-5.1) mmol/L Chloride 108 H (98-107) mmol/L Carbon Dioxide 24 (22-30) mmol/L Anion Gap 5 mmol/L BUN 20 H (7-17) mg/dL Creatinine 0.98 (0.52-1.04) mg/dL Est GFR (CKD-EPI)AfAm 68 (>60 ml/min/1.73 sqM) Est GFR (CKD-EPI)NonAf 59 (>60 ml/min/1.73 sqM) Glucose 89 (74-99) mg/dL Calcium 8.8 (8.4-10.2) mg/dL Magnesium 2.0 (1.6-2.3) mg/dL Total Bilirubin 1.6 H (0.2-1.3) mg/dL AST 96 H (14-36) U/L ALT 66 H (9-52) U/L Alkaline Phosphatase 171 H (38-126) U/L Troponin I (0.000-0.034) ng/mL Total Protein 5.7 L (6.3-8.2) g/dL Albumin 2.9 L (3.5-5.0) g/dL 07/12/18 Range/Units 12:57 WBC (3.8-10.6) k/uL RBC (3.80-5.40) m/uL Hgb (11.4-16.0) gm/dL Hct (34.0-46.0) % MCV (80.0-100.0) fL MCH (25.0-35.0) pg MCHC (31.0-37.0) g/dL RDW (11.5-15.5) % Plt Count (150-450) k/uL Neutrophils % % Lymphocytes % % Monocytes % % Eosinophils % % Basophils % % Neutrophils # (1.3-7.7) k/uL Lymphocytes # (1.0-4.8) k/uL Monocytes # (0-1.0) k/uL Eosinophils # (0-0.7) k/uL Basophils # (0-0.2) k/uL Macrocytosis PT (9.0-12.0) sec INR (<1.2) APTT (22.0-30.0) sec Sodium (137-145) mmol/L Potassium (3.5-5.1) mmol/L Chloride (98-107) mmol/L Carbon Dioxide (22-30) mmol/L Anion Gap mmol/L BUN (7-17) mg/dL Creatinine (0.52-1.04) mg/dL Est GFR (CKD-EPI)AfAm (>60 ml/min/1.73 sqM) Est GFR (CKD-EPI)NonAf (>60 ml/min/1.73 sqM) Glucose (74-99) mg/dL Calcium (8.4-10.2) mg/dL Magnesium (1.6-2.3) mg/dL Total Bilirubin (0.2-1.3) mg/dL AST (14-36) U/L ALT (9-52) U/L Alkaline Phosphatase (38-126) U/L Troponin I 0.034 (0.000-0.034) ng/mL Total Protein (6.3-8.2) g/dL Albumin (3.5-5.0) g/dL Disposition Clinical Impression: Chest pain Disposition: ADMITTED IP TO THIS HOSP Referrals: Henrik Velazquez MD [Primary Care Provider] - 1-2 days Time of Disposition: 15:02
[2018-07-12 13:16] LABS: Basophils % (A) 1 %; Eosinophils # (A) 0.2 k/uL (0-0.7); Eosinophils % (A) 4 %; HCT 37.7 % (34.0-46.0); HGB 11.5 gm/dL (11.4-16.0); Lymphocytes # (A) 0.8 k/uL (1.0-4.8); Lymphocytes % (A) 20 %; MCH 31.7 pg (25.0-35.0); MCHC 30.6 g/dL (31.0-37.0); MCV 103.6 fL (80.0-100.0); Macrocytosis Slight; Mean Platelet Volume 7.7; Monocytes # (A) 0.3 k/uL (0-1.0); Monocytes % (A) 8 %; Neutrophils # (A) 2.7 k/uL (1.3-7.7); Neutrophils % (A) 65 %; Platelet Count 315 k/uL (150-450); RBC 3.64 m/uL (3.80-5.40); RDW 14.1 % (11.5-15.5); WBC 4.2 k/uL (3.8-10.6)
--- NOTE | 2018-07-12 13:25 | XR ---
EXAMINATION TYPE: XR chest 2V DATE OF EXAM: 07/12/2018 COMPARISON: Prior chest 03/12/2018 HISTORY: Chest pain TECHNIQUE: Frontal and lateral views of the chest are obtained. FINDINGS: There is some improved aeration at the left lung base. Persistent blunting of the right co stophrenic angle noted. No evident pneumothorax. Suspect coronary artery calcifications are present. Heart size is stable. Aorta is dense. IMPRESSION: Minimal effusion may be present. Improved aeration.
[2018-07-12 13:26] LABS: Albumin 2.9 g/dL (3.5-5.0); Calcium 8.8 mg/dL (8.4-10.2); Total Bilirubin 1.6 mg/dL (0.2-1.3); Total Protein 5.7 g/dL (6.3-8.2)
[2018-07-12 13:35] LABS: Partial Thromboplastin Time 24.5 sec (22.0-30.0); Prothrombin Time 10.7 sec (9.0-12.0)
[2018-07-12] MEDS ORDERED: NITROGLYCERIN SL TABS 0.4 MG TAB SUBLINGUAL PRN (15:02)
[2018-07-12] MEDS: NITROGLYCERIN OINT 1 INCH/GM PACKET TOPICAL SCH ×2 (19:19→23:15)
[2018-07-13] MEDS: NITROGLYCERIN OINT 1 INCH/GM PACKET TOPICAL SCH (05:39)
[2018-07-13 08:19] VITALS: BP 145/82; PULSE 90; RESP 16; TEMP 98.1
[2018-07-13 08:32] LABS: Cholesterol 164 mg/dL (<200); HDL Cholesterol 30 mg/dL (40-60); LDL Cholesterol,Calculated 114 mg/dL (0-99); Triglycerides 100 mg/dL (<150)
[2018-07-13] MEDS ORDERED: ASPIRIN 325 MG TAB PO SCH (09:00)
--- NOTE | 2018-07-13 15:23 | HP ---
HISTORY AND PHYSICAL CHIEF COMPLAINT: Chest pain. HISTORY OF PRESENT ILLNESS: This is the first known admission for this 68-year-old white female who has metastatic breast CA. She has been getting homeopathic treatment in [place] for years. She has steadily been having more and more trouble lately with upper abdominal pain. She has very hard upper abdominal mass which is thought to be related to metastatic disease to her liver. She has refused referrals to Oncology, radiation therapy, etc. and it has been explained the long-term, expected outcome. She came to the emergency room on day of admission and after discussion with the emergency room physician, it was felt that she should be admitted. It was thought likely that her problem was related to her disease. She described having a few episodes at night, which she where she would wake up with fleeting, sharp anterior chest pain and she was sweaty. There was no radiation of the pain, shortness of breath, fever, chills, etc. and it dissipated within a matter of seconds. It did not sound cardiac at all. She has had no fever, chills, cough, hemoptysis, sputum production, trauma, etc. REVIEW OF SYSTEMS: She has had no headaches, neurologic problems, change in vision or hearing, hemoptysis, cough, sputum production, heart disease, abdominal pain, vomiting, diarrhea, melena, hematochezia, jaundice, acholic stools, dark urine, diabetes, etc. PAST MEDICAL HISTORY: Reveals that she is not allergic to any medication. She is on anastrozole 1 mg once a day, omega-3, vitamin D, aspirin, alfalfa, coenzyme Q10, B complex, vitamin C, vitamin B17. She has had a prior history of uterine carcinoma as well. She has had a myocardial infarction in the past, cataracts extraction and she has glaucoma. She has had a hysterectomy. Family, personal and social histories are unremarkable. She has never smoked and does not consume alcohol. PHYSICAL EXAMINATION: Blood pressure 112/72 with a pulse of 70 and regular, respirations 14 and she is afebrile. In general, she appeared to be well developed, well nourished, in no acute distress. There is no jaundice. Head, ears, eyes, nose, mouth, and throat were normal. Neck veins are not distended. Thyroid is not enlarged. Chest is clear to auscultation and percussion and chest wall is nontender. Breath sounds are heard on both sides. Cardiac exam demonstrates sinus rhythm and no murmurs or extra sounds. The abdomen is soft, but there is a hard upper abdominal mass which goes across the upper abdomen. Bowel sounds are heard. Extremities are normal. Neurologically she is intact. She is admitted to the hospital with diagnoses: 1. Sharp, atypical chest pain. 2. Metastatic carcinoma of the breast. PLAN: 1. Bed rest. 2. IV fluids. 3. Serial EKGs and enzymes. 4. Probably discharge her to outpatient followup. MMODL / IJN: [id number] /
--- NOTE | 2018-07-13 20:35 | DS ---
DISCHARGE SUMMARY DISCHARGE DATE: 07/13/2018 CHIEF COMPLAINT: Atypical chest pain. HISTORY OF PRESENT ILLNESS AND PHYSICAL EXAM: Details of this lady's history and physical can be found in the initial workup. LABORATORY STUDIES: While she was in a hospital she had laboratory studies, details of which can be found in the laboratory section of her chart. COURSE IN THE HOSPITAL: After admission she was placed on bedrest, started on intravenous fluids and she had serial EKGs and enzymes and they were all normal. It is felt that her pain was not at all suspicious for pulmonary or cardiac disease. It was felt she could go home and she will go home on usual activity, diet, medications and will be seen in the office in several days. FINAL DIAGNOSES: 1. Atypical chest pain. 2. Metastatic carcinoma of the breast. OPERATIONS: None. CONSULTATIONS: None. She is improved. MMODL / IJN: [id number] /
== END 2018-07-13 10:11 | disposition home or self-care (01) ==
LOC: EC 11:33 → 1SOBS 15:03
PROVIDERS: ADMIT Family Medicine; ATTEND Family Medicine
DX: R07.89 Other chest pain (principal); R06.02 Shortness of breath; R19.00 Intra-abdominal and pelvic swelling, mass and lump, unspecified site; C50.911 Malignant neoplasm of unspecified site of right female breast; C78.7 Secondary malignant neoplasm of liver and intrahepatic bile duct; E78.5 Hyperlipidemia, unspecified; I25.2 Old myocardial infarction; Z95.5 Presence of coronary angioplasty implant and graft; Z85.42 Personal history of malignant neoplasm of other parts of uterus; Z79.899 Other long term (current) drug therapy; Z79.810 Long term (current) use of selective estrogen receptor modulators (SERMs); Z79.811 Long term (current) use of aromatase inhibitors; Z82.49 Family history of ischemic heart disease and other diseases of the circulatory system
CPT/HCPCS: 99285; 36415; 93005; 80061; 80053; 83735; 84484 ×2; 85025; 85610; 85730; 71046; G0378 ×2

== ENCOUNTER 2018-08-12 15:55 | Inpatient (IN) | payer MEDICARE ==
--- NOTE | 2018-08-12 16:37 | ED ---
Abdominal Pain HPI - General Chief Complaint: Abdominal Pain Stated Complaint: Leg&Abd Swelling Time Seen by Provider: 08/12/18 16:17 Source: patient, RN notes reviewed, old records reviewed Mode of arrival: wheelchair Limitations: no limitations - History of Present Illness Initial Comments: This is a 68-year-old female the ER for evaluation. Patient presents today for evaluation regards to abdominal pain. Patient does have significant abdominal pain secondary to ascites swelling fluid in weight gain. Mild nausea no vomiting no fevers. No change in symptoms. Symptoms of been progressively worsening. She does have history of breast CA with spread to liver. MD Complaint: abdominal pain -: unknown Location: diffuse Radiation: none Migration to: no migration Severity: moderate Severity scale (1-10): 6 Quality: fullness Consistency: constant Improves With: nothing Worsens With: nothing Context: other (History Breast CA mets to LIver) Associated Symptoms: nausea - Related Data Home Medications Medication Instructions Recorded Confirmed B 17 1 tab PO TID 02/10/14 08/12/18 Tamoxifen [Nolvadex] 10 mg PO DAILY 03/12/18 08/12/18 Ascorbic Acid [Vitamin C] 1,000 mg PO DAILY 07/12/18 08/12/18 Liver/Galbladder Suppl Unknown 1 tab PO DAILY 07/12/18 08/12/18 Thyroid Med (Unknown) 1 tab PO DAILY 07/12/18 08/12/18 Tumeric (Unknown) 1 tab PO DAILY 07/12/18 08/12/18 Ubidecarenone [Co Q-10] 100 mg PO DAILY 07/12/18 08/12/18 Cancer Tonix 1 dose PO DAILY 08/12/18 08/12/18 Allergies Allergy/AdvReac Type Severity Reaction Status Date / Time No Known Allergies Allergy Verified 08/12/18 16:51 Review of Systems ROS Statement: Those systems with pertinent positive or pertinent negative responses have been documented in the HPI. ROS Other: All systems not noted in ROS Statement are negative. Past Medical History Past Medical History: Coronary Artery Disease (CAD), Cancer, Chest Pain / Angina, Hyperlipidemia, Myocardial Infarction ([place]), Pneumonia, Syncope Additional Past Medical History / Comment(s): 2011 Breast cancer with mets to liver being treated in [place] with laetrile infusions and she takes po form at home, uterine cancer with hysterectomy, syncope with [place] in 2012, hypothyroed Last Myocardial Infarction Date:: 10/04/12 History of Any Multi-Drug Resistant Organisms: None Reported Past Surgical History: Heart Catheterization With Stent, Hysterectomy Additional Past Surgical History / Comment(s): SEPTEMBER 2012 CCATH WITH STENT X1. NECK CYST REMOVED AT AGE 7 YRS. HYSTERECTOMY IN 1995. Past Anesthesia/Blood Transfusion Reactions: No Reported Reaction Additional Past Anesthesia/Blood Transfusion Reaction / Comment(s): PT HAS NEVER HAD BLOOD-SHE IS A JEHOVA WITNESS Date of Last Stent Placement:: 10/04/12 Past Psychological History: No Psychological Hx Reported Smoking Status: Never smoker Past Alcohol Use History: None Reported Past Drug Use History: None Reported - Past Family History Father Family Medical History: Myocardial Infarction ([place]) Additional Family Medical History / Comment(s): FATHER AT AGE 69 OF [place]. HE WAS A SMOKER. Mother Family Medical History: Myocardial Infarction ([place]) Additional Family Medical History / Comment(s): MOTHER WAS 69 YRS OF WHEN SHE OF AN [place]. SHE WAS A SMOKER. General Exam Limitations: no limitations General appearance: alert, in no apparent distress Head exam: Present: atraumatic, normocephalic, normal inspection Eye exam: Present: normal appearance, PERRL, EOMI. Absent: scleral icterus, conjunctival injection, periorbital swelling ENT exam: Present: normal exam, mucous membranes moist Neck exam: Present: normal inspection. Absent: tenderness, meningismus, lymphadenopathy Respiratory exam: Present: normal lung sounds bilaterally. Absent: respiratory distress, wheezes, rales, rhonchi, stridor Cardiovascular Exam: Present: normal rhythm, tachycardia, normal heart sounds. Absent: systolic murmur, diastolic murmur, rubs, gallop, clicks GI/Abdominal exam: Present: soft, normal bowel sounds. Absent: distended, tenderness, guarding, rebound, rigid Extremities exam: Present: normal inspection, full ROM, normal capillary refill. Absent: tenderness, pedal edema, joint swelling, calf tenderness Back exam: Present: normal inspection Neurological exam: Present: alert, oriented X3, CN II-XII intact Psychiatric exam: Present: normal affect, normal mood Skin exam: Present: warm, dry, intact, normal color. Absent: rash Course Vital Signs 08/12/18 16:04 Temperature 97.7 F Pulse Rate 108 H Respiratory 20 Rate Blood Pressure 139/80 O2 Sat by Pulse 98 Oximetry - Reevaluation(s) Reevaluation #1: 08/12/18 18:27 Medical records reviewed Reevaluation #2: 08/12/18 18:27 Patient has adequate pain control Medical Decision Making - Medical Decision Making 68 female the ER for evaluation. Positive abdominal pain positive ascites, patient will be admitted for interventional radiology paracentesis - Lab Data Result diagrams: 08/12/18 16:25 08/12/18 16:25 Lab Results 08/12/18 08/12/18 08/12/18 Range/Units 16:25 16:25 16:25 WBC 6.1 (3.8-10.6) k/uL RBC 3.57 L (3.80-5.40) m/uL Hgb 11.8 (11.4-16.0) gm/dL Hct 37.1 (34.0-46.0) % MCV 104.1 H (80.0-100.0) fL MCH 33.1 (25.0-35.0) pg MCHC 31.8 (31.0-37.0) g/dL RDW 13.9 (11.5-15.5) % Plt Count 376 (150-450) k/uL Neutrophils % 75 % Lymphocytes % 16 % Monocytes % 5 % Eosinophils % 2 % Basophils % 1 % Neutrophils # 4.6 (1.3-7.7) k/uL Lymphocytes # 1.0 (1.0-4.8) k/uL Monocytes # 0.3 (0-1.0) k/uL Eosinophils # 0.2 (0-0.7) k/uL Basophils # 0.0 (0-0.2) k/uL Macrocytosis Slight Sodium 134 L (137-145) mmol/L Potassium 4.5 (3.5-5.1) mmol/L Chloride 105 (98-107) mmol/L Carbon Dioxide 24 (22-30) mmol/L Anion Gap 5 mmol/L BUN 13 (7-17) mg/dL Creatinine 1.11 H (0.52-1.04) mg/dL Est GFR (CKD-EPI)AfAm 59 (>60 ml/min/1.73 sqM) Est GFR (CKD-EPI)NonAf 51 (>60 ml/min/1.73 sqM) Glucose 108 H (74-99) mg/dL Plasma Lactic Acid Elvin 0.8 (0.7-2.0) mmol/L Calcium 8.5 (8.4-10.2) mg/dL Magnesium 1.9 (1.6-2.3) mg/dL Total Bilirubin 2.5 H (0.2-1.3) mg/dL AST 140 H (14-36) U/L ALT 64 H (9-52) U/L Alkaline Phosphatase 245 H (38-126) U/L Ammonia <9 (<30) umol/L Total Protein 5.4 L (6.3-8.2) g/dL Albumin 2.7 L (3.5-5.0) g/dL Amylase 48 (30-110) U/L Lipase 285 (23-300) U/L Disposition Clinical Impression: Ascites, Abdominal pain Disposition: ADMITTED IP TO THIS HOSP Condition: Fair Is patient prescribed a controlled substance at d/c from ED?: No Referrals: Henrik Velazquez MD [Primary Care Provider] - 1-2 days
[2018-08-12 16:38] LABS: Basophils % (A) 1 %; Eosinophils # (A) 0.2 k/uL (0-0.7); Eosinophils % (A) 2 %; HCT 37.1 % (34.0-46.0); HGB 11.8 gm/dL (11.4-16.0); Lymphocytes % (A) 16 %; MCH 33.1 pg (25.0-35.0); MCHC 31.8 g/dL (31.0-37.0); MCV 104.1 fL (80.0-100.0); Macrocytosis Slight; Mean Platelet Volume 7.2; Monocytes # (A) 0.3 k/uL (0-1.0); Monocytes % (A) 5 %; Neutrophils # (A) 4.6 k/uL (1.3-7.7); Neutrophils % (A) 75 %; Platelet Count 376 k/uL (150-450); RBC 3.57 m/uL (3.80-5.40); RDW 13.9 % (11.5-15.5); WBC 6.1 k/uL (3.8-10.6)
[2018-08-12 16:55] LABS: Albumin 2.7 g/dL (3.5-5.0); Ammonia <9 umol/L (<30); Calcium 8.5 mg/dL (8.4-10.2); Lactic Acid, Venous 0.8 mmol/L (0.7-2.0); Magnesium 1.9 mg/dL (1.6-2.3); Potassium 4.5 mmol/L (3.5-5.1); Total Bilirubin 2.5 mg/dL (0.2-1.3); Total Protein 5.4 g/dL (6.3-8.2)
[2018-08-12] MEDS ORDERED: MORPHINE SULFATE 4 MG/ML SYRINGE IVP STA (17:45)
[2018-08-12] MEDS: SODIUM CHLORIDE 0.9% 1,000 ML IV SCH (18:19)
[2018-08-13] MEDS: MORPHINE SULFATE 4 MG/ML SYRINGE IVP PRN ×3 (00:13→11:22)
[2018-08-13] MEDS: SODIUM CHLORIDE 0.9% 1,000 ML IV SCH (04:17)
[2018-08-13] MEDS ORDERED: PANTOPRAZOLE 40 MG/10 ML VIAL IV SCH (09:00)
[2018-08-13] MEDS ORDERED: ENOXAPARIN 40 MG/0.4 ML SYRINGE SQ SCH (09:00)
--- NOTE | 2018-08-13 09:17 | US ---
EXAMINATION TYPE: US abdomen limited DATE OF EXAM: 08/13/2018 COMPARISON: NONE CLINICAL HISTORY: assess for fluid pocket please. Ascites check Fluid seen in all 4 quadrants IMPRESSION: 1. Ascites
[2018-08-13 09:18] LABS: Prothrombin Time 10.7 sec (9.0-12.0)
[2018-08-13 11:05] VITALS: RESP 16; TEMP 97.2
[2018-08-13 12:53] VITALS: BP 136/80; PULSE 97
[2018-08-13 13:11] LABS: Appearance,BF Clear
--- NOTE | 2018-08-13 13:16 | US ---
Therapeutic and diagnostic paracentesis. DATE OF EXAM: 08/13/2018 CLINICAL HISTORY: Ascites The procedure was discussed with the patient. The risks, complications, benefits, and alternatives we re discussed and any questions were answered. Informed consent was obtained. The patient was placed s upine on the ultrasound table and prepped and draped in the usual sterile fashion. All elements of maximal barrier technique were utilized. Under ultrasound guidance, access into the right lower quadrant was obtained, via the paracentesis catheter system and direct ultrasound guidanc e. Approximately 3.86 liters of straw-colored fluid was removed. The patient was stable throughout the p rocedure and remained stable upon discharge from Department of Radiology. Sample sent department of p athology for analysis. IMPRESSION: Successful paracentesis under ultrasound guidance.
[2018-08-13 14:32] LABS: Nucleated Cells, Body Fluid 50 /uL; RBC, Body Fluid 230 /uL
[2018-08-13 14:43] LABS: Mononuclear WBC,Body Fluid 92 %; Polynuclear WBC,Body Fluid 8 %; Total Cells Counted,Body Fluid 100
--- NOTE | 2018-08-13 19:51 | HP ---
HISTORY AND PHYSICAL CHIEF COMPLAINT: Abdominal pain and distention. HISTORY OF PRESENT ILLNESS: This is another admission for this 68-year-old white female who has widely metastatic carcinoma of the breast. After being diagnosed with breast cancer, she went to [place] to receive alternative treatments. She did well for a number of years but lately has started to deteriorate. She has huge metastases to the liver. She is doing fairly well at home, surprisingly. She started to develop abdominal distention and came to the emergency room, where she was found to have massive ascites and was admitted. REVIEW OF SYSTEMS: She still has an appetite. She has no neurologic problems, change in the vision or the hearing, shortness of breath, chest pain, cough, hemoptysis, hypertension, heart disease, orthopnea, PND, nausea, vomiting, hematemesis, melena, hematochezia, jaundice, etc. She has had no renal failure, dysuria, hematuria, etc. Past medical history, family history, and personal and social histories are all otherwise unremarkable and noncontributory. PHYSICAL EXAMINATION: Blood pressure is 138/74 with a pulse of 86, respirations of 38, and she is afebrile. In general she appeared to be chronically ill. She was pale. Head, ears, eyes, nose, mouth and throat were otherwise normal. Chest was clear. Cardiac exam was normal sinus rhythm. The abdomen was very distended with ascites. It was tight and she had generalized mild tenderness. Bowel sounds were present. Liver was greatly enlarged and hard. Extremities were normal. Neurologically she was intact. IMPRESSION: 1. Ascites. 2. Metastatic carcinoma of the breast with particular involvement of the liver. PLAN: 1. Bed rest. 2. IV fluids. 3. Consult with Interventional Radiology for paracentesis. MMODL / IJN: [id number] /
--- NOTE | 2018-08-13 20:11 | DS ---
DISCHARGE SUMMARY CHIEF COMPLAINT: Ascites. HISTORY OF PRESENT ILLNESS/AND PHYSICAL EXAM: Details of this lady's history and physical can be found in the initial workup. LABORATORY STUDIES: While she was in the hospital, she had laboratory studies, details of which can be found in the laboratory section of her chart. COURSE IN HOSPITAL: After admission, she was placed on bedrest, started on intravenous fluids and seen by Interventional Radiology. She was tapped for about 8 L of fluid and was stable and felt she could go home. She will follow up in the office in several days. FINAL DIAGNOSES: 1. Ascites. 2. Metastatic carcinoma of the breast with liver metastases. OPERATIONS: Thoracentesis. CONSULTATIONS: Intervention radiology. She is improved. MMODL / IJN: [id number] /
[2018-08-14] MEDS ORDERED: TAMOXIFEN 10 MG TAB PO SCH (09:00)
== END 2018-08-13 16:14 | disposition home or self-care (01) | DRG 948 ==
LOC: EC 15:55 → 1SOBS 18:13 → OBSVTOIN 08-13 13:45
PROVIDERS: ADMIT Family Medicine; ATTEND Family Medicine
PROC: 0W9G3ZX Drainage of Peritoneal Cavity, Percutaneous Approach, Diagnostic (ICD-10-PCS; principal; 2018-08-13)
DX: R18.8 Other ascites (principal); C78.7 Secondary malignant neoplasm of liver and intrahepatic bile duct; C50.919 Malignant neoplasm of unspecified site of unspecified female breast; E78.5 Hyperlipidemia, unspecified; I25.10 Atherosclerotic heart disease of native coronary artery without angina pectoris; I25.2 Old myocardial infarction; Z79.899 Other long term (current) drug therapy; Z90.710 Acquired absence of both cervix and uterus; Z85.42 Personal history of malignant neoplasm of other parts of uterus; Z87.01 Personal history of pneumonia (recurrent); Z82.49 Family history of ischemic heart disease and other diseases of the circulatory system
CPT/HCPCS: 36415; 49083; 76705; 80053; 82140; 82150; 82945; 83605; 83615; 83690; 83735; 85025; 85610; 87070; 87075; 87205; 88108; 88305; 88341; 88342; 89050; 93005; 94760; 96374; 99285

== ENCOUNTER 2018-09-10 13:35 | Observation (INO) | payer MEDICARE, OTHER ==
[2018-09-10] MEDS ORDERED: IPRATROPIUM-ALBUTEROL 3 ML NEB INHALATION STA (14:28)
--- NOTE | 2018-09-10 14:31 | ED ---
Abdominal Pain HPI - General Chief Complaint: Shortness of Breath Stated Complaint: Fluid on Stomach Time Seen by Provider: 09/10/18 14:25 Source: patient, RN notes reviewed, old records reviewed Mode of arrival: ambulatory Limitations: no limitations - History of Present Illness Initial Comments: This is a 68-year-old female the ER for evaluation. Patient was essay for evaluation of bowel pain history of liver CA with prior paracentesis, shortness of breath abdominal pain secondary to ascites. We will admit for drainage by interventional radiology MD Complaint: abdominal pain -: week(s) Location: diffuse Radiation: none Migration to: no migration Severity: moderate Severity scale (1-10): 7 Quality: aching, fullness Consistency: constant Improves With: nothing Worsens With: nothing Associated Symptoms: nausea - Related Data Home Medications Medication Instructions Recorded Confirmed Ascorbic Acid [Vitamin C] 1,000 mg PO DAILY 07/12/18 09/10/18 Furosemide [Lasix] 40 mg PO BID 09/10/18 09/10/18 Milk Thistle 150 mg PO DAILY 09/10/18 09/10/18 Spironolactone-Hctz 25-25Mg 1 tab PO BID 09/10/18 09/10/18 [Aldactazide 25-25Mg] Vitamin B Complex 1 cap PO DAILY 09/10/18 09/10/18 Allergies Allergy/AdvReac Type Severity Reaction Status Date / Time No Known Allergies Allergy Verified 09/10/18 14:12 Review of Systems ROS Statement: Those systems with pertinent positive or pertinent negative responses have been documented in the HPI. ROS Other: All systems not noted in ROS Statement are negative. Past Medical History Past Medical History: Coronary Artery Disease (CAD), Cancer, Chest Pain / Angina, Hyperlipidemia, Myocardial Infarction (DE), Pneumonia, Syncope, Thyroid Disorder Additional Past Medical History / Comment(s): 2011 Breast cancer with mets to liver being treated in [place] with laetrile infusions and she takes po form at home, uterine cancer with hysterectomy, syncope with DE in 2012, hypothyroed Last Myocardial Infarction Date:: 10/04/12 History of Any Multi-Drug Resistant Organisms: None Reported Past Surgical History: Heart Catheterization With Stent, Hysterectomy Additional Past Surgical History / Comment(s): SEPTEMBER 2012 CCATH WITH STENT X1. NECK CYST REMOVED AT AGE 7 YRS. HYSTERECTOMY IN 1995. Past Anesthesia/Blood Transfusion Reactions: No Reported Reaction Additional Past Anesthesia/Blood Transfusion Reaction / Comment(s): PT HAS NEVER HAD BLOOD-SHE IS A JEHOVA WITNESS Date of Last Stent Placement:: 10/04/12 Past Psychological History: No Psychological Hx Reported Smoking Status: Never smoker Past Alcohol Use History: None Reported Past Drug Use History: None Reported - Past Family History Father Family Medical History: Myocardial Infarction (DE) Additional Family Medical History / Comment(s): FATHER AT AGE 69 OF DE. HE WAS A SMOKER. Mother Family Medical History: Myocardial Infarction (DE) Additional Family Medical History / Comment(s): MOTHER WAS 69 YRS OF WHEN SHE OF AN DE. SHE WAS A SMOKER. General Exam - General Exam Comments Initial Comments: Significantly acidic her distended abdomen Limitations: no limitations General appearance: alert, in no apparent distress Head exam: Present: atraumatic, normocephalic, normal inspection Eye exam: Present: normal appearance, PERRL, EOMI. Absent: scleral icterus, conjunctival injection, periorbital swelling ENT exam: Present: normal exam, mucous membranes moist Neck exam: Present: normal inspection. Absent: tenderness, meningismus, lymphadenopathy Respiratory exam: Present: normal lung sounds bilaterally. Absent: respiratory distress, wheezes, rales, rhonchi, stridor Cardiovascular Exam: Present: regular rate, normal rhythm, normal heart sounds. Absent: systolic murmur, diastolic murmur, rubs, gallop, clicks GI/Abdominal exam: Present: soft, distended, tenderness, normal bowel sounds. Absent: guarding, rebound, rigid Extremities exam: Present: normal inspection, full ROM, normal capillary refill. Absent: tenderness, pedal edema, joint swelling, calf tenderness Back exam: Present: normal inspection Neurological exam: Present: alert, oriented X3, CN II-XII intact Psychiatric exam: Present: normal affect, normal mood Skin exam: Present: warm, dry, intact, normal color. Absent: rash Course Vital Signs 09/10/18 09/10/18 09/10/18 13:50 15:01 15:12 Temperature 97.7 F Pulse Rate 111 H 101 H 104 H Respiratory 22 Rate Blood Pressure 107/69 O2 Sat by Pulse 98 Oximetry - Reevaluation(s) Reevaluation #1: 09/10/18 15:58 Medical record reviewed Reevaluation #2: 09/10/18 15:58 History of prior similar admission Medical Decision Making - Medical Decision Making 68 female the ER for evaluation presented today for ascites will admit for paracentesis and pain control - Lab Data Result diagrams: 09/10/18 14:14 09/10/18 14:14 Lab Results 09/10/18 09/10/18 09/10/18 Range/Units 14:14 14:14 14:14 WBC 6.5 (3.8-10.6) k/uL RBC 3.46 L (3.80-5.40) m/uL Hgb 11.7 (11.4-16.0) gm/dL Hct 36.2 (34.0-46.0) % MCV 104.7 H (80.0-100.0) fL MCH 33.9 (25.0-35.0) pg MCHC 32.4 (31.0-37.0) g/dL RDW 14.9 (11.5-15.5) % Plt Count 493 H (150-450) k/uL Neutrophils % 71 % Lymphocytes % 16 % Monocytes % 6 % Eosinophils % 5 % Basophils % 1 % Neutrophils # 4.6 (1.3-7.7) k/uL Lymphocytes # 1.0 (1.0-4.8) k/uL Monocytes # 0.4 (0-1.0) k/uL Eosinophils # 0.3 (0-0.7) k/uL Basophils # 0.1 (0-0.2) k/uL Macrocytosis Moderate PT (9.0-12.0) sec INR (<1.2) APTT (22.0-30.0) sec Sodium 133 L (137-145) mmol/L Potassium 4.0 (3.5-5.1) mmol/L Chloride 95 L (98-107) mmol/L Carbon Dioxide 29 (22-30) mmol/L Anion Gap 9 mmol/L BUN 33 H (7-17) mg/dL Creatinine 1.71 H (0.52-1.04) mg/dL Est GFR (CKD-EPI)AfAm 35 (>60 ml/min/1.73 sqM) Est GFR (CKD-EPI)NonAf 30 (>60 ml/min/1.73 sqM) Glucose 97 (74-99) mg/dL Calcium 9.3 (8.4-10.2) mg/dL Magnesium 2.3 (1.6-2.3) mg/dL Total Bilirubin 3.0 H (0.2-1.3) mg/dL AST 189 H (14-36) U/L ALT 66 H (9-52) U/L Alkaline Phosphatase 540 H (38-126) U/L Troponin I (0.000-0.034) ng/mL NT-Pro-B Natriuret Pep 1190 pg/mL Total Protein 6.2 L (6.3-8.2) g/dL Albumin 3.2 L (3.5-5.0) g/dL 09/10/18 09/10/18 Range/Units 14:14 14:14 WBC (3.8-10.6) k/uL RBC (3.80-5.40) m/uL Hgb (11.4-16.0) gm/dL Hct (34.0-46.0) % MCV (80.0-100.0) fL MCH (25.0-35.0) pg MCHC (31.0-37.0) g/dL RDW (11.5-15.5) % Plt Count (150-450) k/uL Neutrophils % % Lymphocytes % % Monocytes % % Eosinophils % % Basophils % % Neutrophils # (1.3-7.7) k/uL Lymphocytes # (1.0-4.8) k/uL Monocytes # (0-1.0) k/uL Eosinophils # (0-0.7) k/uL Basophils # (0-0.2) k/uL Macrocytosis PT 10.3 (9.0-12.0) sec INR 1.0 (<1.2) APTT 24.6 (22.0-30.0) sec Sodium (137-145) mmol/L Potassium (3.5-5.1) mmol/L Chloride (98-107) mmol/L Carbon Dioxide (22-30) mmol/L Anion Gap mmol/L BUN (7-17) mg/dL Creatinine (0.52-1.04) mg/dL Est GFR (CKD-EPI)AfAm (>60 ml/min/1.73 sqM) Est GFR (CKD-EPI)NonAf (>60 ml/min/1.73 sqM) Glucose (74-99) mg/dL Calcium (8.4-10.2) mg/dL Magnesium (1.6-2.3) mg/dL Total Bilirubin (0.2-1.3) mg/dL AST (14-36) U/L ALT (9-52) U/L Alkaline Phosphatase (38-126) U/L Troponin I 0.033 (0.000-0.034) ng/mL NT-Pro-B Natriuret Pep pg/mL Total Protein (6.3-8.2) g/dL Albumin (3.5-5.0) g/dL - EKG Data -: EKG Interpreted by Me (EKG shows sinus tachycardia rate 13, AZ 16, QRS 80, QTC 455) Disposition Clinical Impression: Ascites, Abdominal pain Disposition: ADMITTED IP TO THIS HOSP Condition: Fair Is patient prescribed a controlled substance at d/c from ED?: No Referrals: Henrik Velazquez MD [Primary Care Provider] - 1-2 days
[2018-09-10 14:57] LABS: Basophils # (A) 0.1 k/uL (0-0.2); Basophils % (A) 1 %; Eosinophils # (A) 0.3 k/uL (0-0.7); Eosinophils % (A) 5 %; HCT 36.2 % (34.0-46.0); HGB 11.7 gm/dL (11.4-16.0); Lymphocytes % (A) 16 %; MCH 33.9 pg (25.0-35.0); MCHC 32.4 g/dL (31.0-37.0); MCV 104.7 fL (80.0-100.0); Macrocytosis Moderate; Mean Platelet Volume 7.9; Monocytes # (A) 0.4 k/uL (0-1.0); Monocytes % (A) 6 %; Neutrophils # (A) 4.6 k/uL (1.3-7.7); Neutrophils % (A) 71 %; Platelet Count 493 k/uL (150-450); RBC 3.46 m/uL (3.80-5.40); RDW 14.9 % (11.5-15.5); WBC 6.5 k/uL (3.8-10.6)
[2018-09-10 15:07] LABS: Albumin 3.2 g/dL (3.5-5.0); Calcium 9.3 mg/dL (8.4-10.2); Magnesium 2.3 mg/dL (1.6-2.3); Total Protein 6.2 g/dL (6.3-8.2)
[2018-09-10 15:08] LABS: Partial Thromboplastin Time 24.6 sec (22.0-30.0); Prothrombin Time 10.3 sec (9.0-12.0)
[2018-09-10] MEDS ORDERED: HYDROmorphone 1 MG/ML 1 ML SYRINGE IVP STA (15:27)
[2018-09-10 17:32] VITALS: BMI 24.1
[2018-09-10] MEDS: HYDROmorphone 1 MG/ML 1 ML SYRINGE IVP PRN (19:24)
[2018-09-10] MEDS: FUROSEMIDE 40 MG TAB PO SCH (20:27)
[2018-09-10] MEDS: SPIRONOLACTONE-HCTZ 25-25MG 1 EACH TAB PO SCH (20:27)
[2018-09-11] MEDS ORDERED: HYDROmorphone 1 MG/ML 1 ML SYRINGE ONE (00:43)
[2018-09-11] MEDS: HYDROmorphone 1 MG/ML 1 ML SYRINGE IVP PRN ×4 (05:15→21:15)
[2018-09-11] MEDS: FUROSEMIDE 40 MG TAB PO SCH ×2 (08:50→15:30)
[2018-09-11] MEDS: SPIRONOLACTONE-HCTZ 25-25MG 1 EACH TAB PO SCH ×2 (08:50→21:12)
--- NOTE | 2018-09-11 09:46 | US ---
EXAMINATION TYPE: US abdomen limited DATE OF EXAM: 09/11/2018 COMPARISON : CT dated 07/22/2017 CLINICAL HISTORY: assess for fluid for possible paracentesis. Small volume abdominal ascites is seen within all 4 quadrants. The liver is diffusely heterogenous re lating to the patient's known innumerable hepatic metastases. IMPRESSION: Small volume abdominopelvic ascites and redemonstration of innumerable hepatic metastati c foci.
--- NOTE | 2018-09-11 21:53 | PN ---
PROGRESS NOTE DATE OF SERVICE: 09/11/2018 CHIEF COMPLAINT: Abdominal pain and distention secondary to ascites from metastatic breast carcinoma to the liver. HISTORY OF PRESENT ILLNESS: This lady is still very distended and uncomfortable. She is going down for paracentesis today. PHYSICAL EXAMINATION: Abdomen is tightly distended. Breath sounds are heard on both sides. Cardiac exam is normal. IMPRESSION: Metastatic carcinoma of the breast with ascites. PLAN: Paracentesis today. MMODL / IJN: [id number] /
--- NOTE | 2018-09-11 22:08 | HP ---
HISTORY AND PHYSICAL CHIEF COMPLAINT: Abdominal pain, distention. HISTORY OF PRESENT ILLNESS: This is another recent admission for this 68-year-old female who is dying of metastatic carcinoma of the breast. She has been having problems with gradually increasing ascites with abdominal pain and has periodically been requiring paracentesis. She came into the emergency room with increasing pain and distention and was admitted. REVIEW OF SYSTEMS: She has had no headaches, neurologic problems, confusion, difficulty with vision or hearing, cough, hemoptysis, chest pain, hypertension, hematemesis, melena, hematochezia, jaundice, renal failure, dysuria, frequency, urgency, hematuria, diabetes, etc. Past medical history, family history and personal and social histories are otherwise unremarkable or unchanged. She has refused conventional therapy and continues to want to live at home alone with help. PHYSICAL EXAMINATION: Blood pressure is 116/84 with a pulse of 88, respirations of 35, and she is afebrile. GENERAL: In general she appeared to be asthenic, pale and chronically ill. Head, ears, eyes, nose, mouth, and throat were normal. Neck veins not distended. The chest demonstrated occasional rales at the bases. Cardiac exam demonstrates sinus tachycardia and the abdomen was very protuberant, firm and tender. Bowel sounds could not be heard. Extremities are normal except for poor muscle bulk. Neurologically, she is intact. She is admitted to the hospital with diagnoses: 1. Intractable ascites. 2. Abdominal pain secondary to hepatic metastases and breast cancer. PLAN: 1. Bed rest. 2. Analgesia. 3. Consult with Interventional Radiology for paracentesis. MMODL / IJN: [id number] /
[2018-09-12] MEDS: HYDROmorphone 1 MG/ML 1 ML SYRINGE IVP PRN ×4 (01:16→17:52)
[2018-09-12] MEDS: FUROSEMIDE 40 MG TAB PO SCH ×2 (07:46→17:51)
[2018-09-12] MEDS: SPIRONOLACTONE-HCTZ 25-25MG 1 EACH TAB PO SCH ×2 (07:46→20:09)
--- NOTE | 2018-09-12 14:34 | US ---
EXAMINATION TYPE: US paracentesis abd w/image DATE OF EXAM: 09/12/2018 COMPARISON: NONE HISTORY: Ascites. PROCEDURE: Maximal barrier technique was utilized. The skin overlying a suitable pocket of fluid was localized with ultrasound and the overlying skin was prepped and draped. Ultrasound was utilized with sterile technique. Lidocaine was used for local anesthesia and a skin radha made with a scalpel. Catheter was advanced under direct ultrasound guidance into a suitable pocket of fluid and approximately 4.3 liter s of serous fluid were removed. Catheter was withdrawn and hemostasis achieved. There is no immedia te complication; the patient is discharged in stable condition. IMPRESSION: STATUS POST ULTRASOUND GUIDED PARACENTESIS FOR PALLIATION OF ASCITES. THIS PROCEDURE WA S PERFORMED BY THE UNDERSIGNED.
[2018-09-12] MEDS: MORPHINE SULFATE ER 15 MG TABLET PO SCH ×2 (17:58→23:30)
--- NOTE | 2018-09-12 20:13 | PN ---
PROGRESS NOTE CHIEF COMPLAINT: Metastatic carcinoma of the breast with hepatic replacement and intractable ascites. HISTORY OF PRESENT ILLNESS: This lady was tapped and she is going today. She is concerned about the pain and wants her analgesic program to be increased. PHYSICAL EXAM: She remains pale and asthenic and chronically ill in appearance. She is becoming cachectic. Chest is clear. Cardiac exam is normal. The abdomen is intensely distended with hepatomegaly. IMPRESSION: Metastatic carcinoma of the breast with carcinomatous replacement of liver and secondary ascites. PLAN: 1. Await paracentesis. 2. Start MS Contin 15 mg around the clock every 8 hours. MMODL / IJN: [id number] /
[2018-09-13] MEDS: MORPHINE SULFATE ER 15 MG TABLET PO SCH ×2 (07:53→15:55)
[2018-09-13 12:11] LABS: Albumin 2.4 g/dL (3.5-5.0); Calcium 8.5 mg/dL (8.4-10.2); Potassium 3.9 mmol/L (3.5-5.1); Total Bilirubin 2.7 mg/dL (0.2-1.3)
[2018-09-13] MEDS ORDERED: DEXTROSE 5% IN WATER 1,000 ML IV SCH (12:15)
[2018-09-13 12:22] VITALS: BP 115/69; PULSE 110; RESP 18; TEMP 97.9
[2018-09-13] MEDS: SPIRONOLACTONE-HCTZ 25-25MG 1 EACH TAB PO SCH (14:14)
[2018-09-13] MEDS: FUROSEMIDE 40 MG TAB PO SCH ×2 (14:14→15:54)
--- NOTE | 2018-09-13 22:14 | DS ---
DISCHARGE SUMMARY CHIEF COMPLAINT: Abdominal pain and distention. HISTORY OF PRESENT ILLNESS AND PHYSICAL EXAM: Details of this lady's history and physical can be found in the initial workup. LABORATORY STUDIES: While she was in the hospital, she had laboratory studies, details of which can be found laboratory section of her chart. COURSE IN HOSPITAL: After admission, she was placed on bedrest and was to undergo paracentesis the next day. This was delayed. It was done on the and it was felt that she could go home on . However, she complained of feeling dehydrated. An IV was started. After it had been in for a short period time, the IV failed. At that point in time, she decided that she wanted to go home. She will be discharged on her usual medications and her pain medication will be changed to MS Contin 15 mg q.4 hours around the clock (60 tablets) and she will be seen in the office in a few days. FINAL DIAGNOSES: 1. Intractable ascites. 2. Metastatic breast cancer predominantly to liver. OPERATIONS: Paracentesis. CONSULTATIONS: Interventional Radiology. She is improved. MMODL / IJN: [id number] /
== END 2018-09-13 20:20 | disposition home health service (06) ==
LOC: EC 13:35 → 3NMEDONC 15:55
PROVIDERS: ADMIT Family Medicine; ATTEND Family Medicine
DX: C50.919 Malignant neoplasm of unspecified site of unspecified female breast (principal); R18.0 Malignant ascites; C78.7 Secondary malignant neoplasm of liver and intrahepatic bile duct; E03.9 Hypothyroidism, unspecified; E86.0 Dehydration; E78.5 Hyperlipidemia, unspecified; I25.10 Atherosclerotic heart disease of native coronary artery without angina pectoris; Z60.2 Problems related to living alone; I25.2 Old myocardial infarction; Z85.42 Personal history of malignant neoplasm of other parts of uterus; Z90.710 Acquired absence of both cervix and uterus; Z82.49 Family history of ischemic heart disease and other diseases of the circulatory system
CPT/HCPCS: 96376 ×3; 96361; 96374; 99285; 36415; 94640; 94760; 93005; 83880; 80053 ×2; 83735; 84484; 85025; 85610; 85730; 76705; 49083; G0378 ×4; J1170 ×3

== ENCOUNTER 2018-10-06 12:17 | Observation (INO) | payer MEDICARE ==
[2018-10-06] MEDS ORDERED: MORPHINE SULFATE 4 MG/ML SYRINGE IV STA (12:54)
--- NOTE | 2018-10-06 13:06 | ED ---
General Adult HPI - General Chief complaint: Abdominal Pain Stated complaint: Abd fluid removal Time Seen by Provider: 10/06/18 12:48 Source: patient, RN notes reviewed, old records reviewed Mode of arrival: ambulatory Limitations: physical limitation - History of Present Illness Initial comments: 68-year-old female history of breast cancer and liver failure with recurrent ascites presenting with abdominal distention and pain. No reported fever or ch ills. Patient denies vomiting or diarrhea. She states that her last paracentesis was approximately one month ago. She is receiving treatment for her cancer however she receives his treatment in the next, with IV infusions. She states he's been some time since her last infusion. She is complaining of generalized abdominal pain. Pain is consistent with previous ascites. - Related Data Home Medications Medication Instructions Recorded Confirmed Furosemide [Lasix] 40 mg PO BID 09/10/18 10/06/18 Spironolactone-Hctz 25-25Mg 1 tab PO BID 09/10/18 10/06/18 [Aldactazide 25-25 MG] Morphine Sulfate ER [Ms Contin] 15 mg PO Q8H 10/06/18 10/06/18 Allergies Allergy/AdvReac Type Severity Reaction Status Date / Time No Known Allergies Allergy Verified 10/06/18 12:52 Review of Systems ROS Statement: Those systems with pertinent positive or pertinent negative responses have been documented in the HPI. ROS Other: All systems not noted in ROS Statement are negative. Past Medical History Past Medical History: Coronary Artery Disease (CAD), Cancer, Chest Pain / Angina, Hyperlipidemia, Myocardial Infarction (ND), Pneumonia, Syncope, Thyroid Disorder Additional Past Medical History / Comment(s): 2011 Breast cancer with mets to liver being treated in [place] with laetrile infusions and she takes po form at home, uterine cancer with hysterectomy, syncope with ND in 2012, hypothyroid Last Myocardial Infarction Date:: 10/04/12 History of Any Multi-Drug Resistant Organisms: None Reported Past Surgical History: Heart Catheterization With Stent, Hysterectomy Additional Past Surgical History / Comment(s): SEPTEMBER 2012 CCATH WITH STENT X1. NECK CYST REMOVED AT AGE 7 YRS. HYSTERECTOMY IN 1995. Past Anesthesia/Blood Transfusion Reactions: No Reported Reaction Additional Past Anesthesia/Blood Transfusion Reaction / Comment(s): PT HAS NEVER HAD BLOOD-SHE IS A JEHOVA WITNESS Date of Last Stent Placement:: 10/04/12 Past Psychological History: No Psychological Hx Reported Smoking Status: Never smoker Past Alcohol Use History: None Reported Past Drug Use History: None Reported - Past Family History Father Family Medical History: Myocardial Infarction (ND) Additional Family Medical History / Comment(s): FATHER AT AGE 69 OF ND. HE WAS A SMOKER. Mother Family Medical History: Myocardial Infarction (ND) Additional Family Medical History / Comment(s): MOTHER WAS 69 YRS OF WHEN SHE OF AN ND. SHE WAS A SMOKER. General Exam Limitations: physical limitation General appearance: alert, in no apparent distress, cachectic Head exam: Present: atraumatic, normocephalic Eye exam: Present: normal appearance, PERRL ENT exam: Present: normal exam. Absent: normal oropharynx, mucous membranes dry Neck exam: Present: normal inspection Respiratory exam: Present: normal lung sounds bilaterally. Absent: respiratory distress, wheezes Cardiovascular Exam: Present: normal rhythm, tachycardia GI/Abdominal exam: Present: distended, tenderness, rigid. Absent: guarding, rebound Extremities exam: Present: normal inspection, normal capillary refill. Absent: pedal edema Neurological exam: Present: alert, oriented X3. Absent: CN II-XII intact, motor sensory deficit Psychiatric exam: Present: normal affect, normal mood Skin exam: Present: warm, dry, intact. Absent: cyanosis, diaphoretic Course Vital Signs 10/06/18 10/06/18 12:22 14:59 Temperature 97.6 F Pulse Rate 107 H 100 Respiratory 20 22 Rate Blood Pressure 92/61 104/73 O2 Sat by Pulse 99 96 Oximetry Medical Decision Making - Medical Decision Making 68-year-old female with abdominal pain, recurrent ascites presenting for recurrence of abdominal distention and pain. She has normal CBC, INR 1.1, creatinine mildly elevated above baseline at 2. She has a bili which is up trending 4.4, transaminitis. She will be admitted for symptom control, interv entional radiology is placed on consult for paracentesis. Case discussed with the admitting physician. - Lab Data Result diagrams: 10/06/18 13:12 10/06/18 13:12 Lab Results 10/06/18 10/06/18 10/06/18 Range/Units 13:12 13:12 13:12 WBC 5.6 (3.8-10.6) k/uL RBC 3.92 (3.80-5.40) m/uL Hgb 12.9 (11.4-16.0) gm/dL Hct 40.3 (34.0-46.0) % MCV 102.7 H (80.0-100.0) fL MCH 33.0 (25.0-35.0) pg MCHC 32.1 (31.0-37.0) g/dL RDW 13.7 (11.5-15.5) % Plt Count 488 H (150-450) k/uL Neutrophils % 82 % Lymphocytes % 11 % Monocytes % 3 % Eosinophils % 1 % Basophils % 0 % Neutrophils # 4.6 (1.3-7.7) k/uL Lymphocytes # 0.6 L (1.0-4.8) k/uL Monocytes # 0.2 (0-1.0) k/uL Eosinophils # 0.1 (0-0.7) k/uL Basophils # 0.0 (0-0.2) k/uL Macrocytosis Slight PT 11.4 (9.0-12.0) sec INR 1.1 (<1.2) APTT 24.7 (22.0-30.0) sec Sodium 130 L (137-145) mmol/L Potassium 3.8 (3.5-5.1) mmol/L Chloride 88 L (98-107) mmol/L Carbon Dioxide 31 H (22-30) mmol/L Anion Gap 11 mmol/L BUN 70 H (7-17) mg/dL Creatinine 2.01 H (0.52-1.04) mg/dL Est GFR (CKD-EPI)AfAm 29 (>60 ml/min/1.73 sqM) Est GFR (CKD-EPI)NonAf 25 (>60 ml/min/1.73 sqM) Glucose 131 H (74-99) mg/dL Calcium 8.8 (8.4-10.2) mg/dL Total Bilirubin 4.4 H (0.2-1.3) mg/dL AST 202 H (14-36) U/L ALT 73 H (9-52) U/L Alkaline Phosphatase 642 H (38-126) U/L Total Protein 6.2 L (6.3-8.2) g/dL Albumin 3.1 L (3.5-5.0) g/dL Lipase 184 (23-300) U/L Urine Color Urine Appearance (Clear) Urine pH (5.0-8.0) Ur Specific [place] (1.001-1.035) Urine Protein (Negative) Urine Glucose (UA) (Negative) Urine Ketones (Negative) Urine Blood (Negative) Urine Nitrite (Negative) Urine Bilirubin (Negative) Urine Urobilinogen (<2.0) mg/dL Ur Leukocyte Esterase (Negative) Urine RBC (0-5) /hpf Urine WBC (0-5) /hpf Ur Squamous Epith Cells (0-4) /hpf Amorphous Sediment (None) /hpf Hyaline Casts (0-2) /lpf 10/06/18 Range/Units 15:00 WBC (3.8-10.6) k/uL RBC (3.80-5.40) m/uL Hgb (11.4-16.0) gm/dL Hct (34.0-46.0) % MCV (80.0-100.0) fL MCH (25.0-35.0) pg MCHC (31.0-37.0) g/dL RDW (11.5-15.5) % Plt Count (150-450) k/uL Neutrophils % % Lymphocytes % % Monocytes % % Eosinophils % % Basophils % % Neutrophils # (1.3-7.7) k/uL Lymphocytes # (1.0-4.8) k/uL Monocytes # (0-1.0) k/uL Eosinophils # (0-0.7) k/uL Basophils # (0-0.2) k/uL Macrocytosis PT (9.0-12.0) sec INR (<1.2) APTT (22.0-30.0) sec Sodium (137-145) mmol/L Potassium (3.5-5.1) mmol/L Chloride (98-107) mmol/L Carbon Dioxide (22-30) mmol/L Anion Gap mmol/L BUN (7-17) mg/dL Creatinine (0.52-1.04) mg/dL Est GFR (CKD-EPI)AfAm (>60 ml/min/1.73 sqM) Est GFR (CKD-EPI)NonAf (>60 ml/min/1.73 sqM) Glucose (74-99) mg/dL Calcium (8.4-10.2) mg/dL Total Bilirubin (0.2-1.3) mg/dL AST (14-36) U/L ALT (9-52) U/L Alkaline Phosphatase (38-126) U/L Total Protein (6.3-8.2) g/dL Albumin (3.5-5.0) g/dL Lipase (23-300) U/L Urine Color Yellow Urine Appearance Clear (Clear) Urine pH 6.0 (5.0-8.0) Ur Specific [place] 1.011 (1.001-1.035) Urine Protein Negative (Negative) Urine Glucose (UA) Negative (Negative) Urine Ketones Negative (Negative) Urine Blood Negative (Negative) Urine Nitrite Negative (Negative) Urine Bilirubin Negative (Negative) Urine Urobilinogen <2.0 (<2.0) mg/dL Ur Leukocyte Esterase Moderate H (Negative) Urine RBC 1 (0-5) /hpf Urine WBC 6 H (0-5) /hpf Ur Squamous Epith Cells 12 H (0-4) /hpf Amorphous Sediment Rare H (None) /hpf Hyaline Casts 33 H (0-2) /lpf Disposition Clinical Impression: Ascites, Abdominal pain Disposition: ADMITTED IP TO THIS [facility] Condition: Stable Is patient prescribed a controlled substance at d/c from ED?: No Referrals: Henrik Velazquez MD [Primary Care Provider] - 1-2 days Decision to Admit Reason: Admit from EC Decision Date: 10/06/18 Decision Time: 15:38
[2018-10-06 13:28] LABS: Basophils % (A) 0 %; Eosinophils # (A) 0.1 k/uL (0-0.7); Eosinophils % (A) 1 %; HCT 40.3 % (34.0-46.0); HGB 12.9 gm/dL (11.4-16.0); Lymphocytes # (A) 0.6 k/uL (1.0-4.8); Lymphocytes % (A) 11 %; MCHC 32.1 g/dL (31.0-37.0); MCV 102.7 fL (80.0-100.0); Macrocytosis Slight; Mean Platelet Volume 7.4; Monocytes # (A) 0.2 k/uL (0-1.0); Monocytes % (A) 3 %; Neutrophils # (A) 4.6 k/uL (1.3-7.7); Neutrophils % (A) 82 %; Platelet Count 488 k/uL (150-450); RBC 3.92 m/uL (3.80-5.40); RDW 13.7 % (11.5-15.5); WBC 5.6 k/uL (3.8-10.6)
[2018-10-06 13:35] LABS: Albumin 3.1 g/dL (3.5-5.0); Calcium 8.8 mg/dL (8.4-10.2); Potassium 3.8 mmol/L (3.5-5.1); Total Bilirubin 4.4 mg/dL (0.2-1.3); Total Protein 6.2 g/dL (6.3-8.2)
[2018-10-06 13:39] LABS: INR 1.1 (<1.2); Partial Thromboplastin Time 24.7 sec (22.0-30.0); Prothrombin Time 11.4 sec (9.0-12.0)
[2018-10-06 15:27] LABS: Amorphous Sediment,Urine Rare /hpf; Appearance,Urine Clear (Clear); Bilirubin,Urine Negative (Negative); Blood,Urine Negative (Negative); Color,Urine Yellow; Glucose,Urine (UA) Negative (Negative); Hyaline Casts,Urine 33 /lpf (0-2); Ketones,Urine Negative (Negative); Leukocyte Esterase,Urine Moderate (Negative); Nitrite,Urine Negative (Negative); Protein,Urine Negative (Negative); RBC,Urine 1 /hpf (0-5); Specific Gravity,Urine 1.011 (1.001-1.035); Squamous Epithelial Cell,Urine 12 /hpf (0-4); Urobilinogen,Urine <2.0 mg/dL (<2.0); WBC,Urine 6 /hpf (0-5)
[2018-10-06] MEDS ORDERED: ONDANSETRON 4 MG/2 ML VIAL IVP PRN (15:30)
[2018-10-06] MEDS ORDERED: NALOXONE 0.4 MG/ML 1 ML VIAL IV PRN (15:30)
[2018-10-06] MEDS: MORPHINE SULFATE 4 MG/ML SYRINGE IV PRN ×2 (18:01→22:19)
[2018-10-06] MEDS: SODIUM CHLORIDE 0.9% 1,000 ML IV SCH (18:19)
[2018-10-06] MEDS: FUROSEMIDE 40 MG TAB PO SCH (23:49)
[2018-10-06] MEDS: SPIRONOLACTONE-HCTZ 25-25MG 1 EACH TAB PO SCH (23:49)
[2018-10-07] MEDS: MORPHINE SULFATE 4 MG/ML SYRINGE IV PRN ×4 (01:54→16:05)
[2018-10-07] MEDS: FUROSEMIDE 40 MG TAB PO SCH (07:13)
[2018-10-07] MEDS: SPIRONOLACTONE-HCTZ 25-25MG 1 EACH TAB PO SCH (07:14)
--- NOTE | 2018-10-07 13:24 | US ---
Therapeutic paracentesis. DATE OF EXAM: 10/07/2018 CLINICAL HISTORY: Ascites The procedure was discussed with the patient. The risks, complications, benefits, and alternatives we re discussed and any questions were answered. Informed consent was obtained. The patient was placed s upine on the ultrasound table and prepped and draped in the usual sterile fashion. All elements of maximal barrier technique were utilized. Under ultrasound guidance, access into the right lower quadrant was obtained, via the paracentesis catheter system and direct ultrasound guidanc e. Approximately 6.1 liters of straw-colored fluid was removed. The patient was stable throughout the pr ocedure and remained stable upon discharge from Department of Radiology. IMPRESSION: Successful therapeutic paracentesis under ultrasound guidance.
[2018-10-07] MEDS: SODIUM CHLORIDE 0.9% 1,000 ML IV SCH (13:28)
[2018-10-07 14:40] VITALS: BP 96/57; PULSE 93; RESP 18; TEMP 97.6
--- NOTE | 2018-10-07 18:28 | HP ---
HISTORY AND PHYSICAL CHIEF COMPLAINT: Abdominal pain. HISTORY OF PRESENT ILLNESS: This is another admission for this 68-year-old white female with metastatic mammary carcinoma involving predominantly the liver resulting in intractable ascites. Her abdomen has become progressively more distended, swollen and once again became painful. She came to emergency room. REVIEW OF SYSTEMS: She has had no vomiting, jaundice, shortness of breath, significant edema, lower extremities, etc. She is still eating this, but losing weight. REVIEW OF SYSTEMS: She denies any headaches, neurologic problems, cough, hemoptysis, shortness of breath, chest pain, heart disease, nausea, vomiting, hematemesis, jaundice, dysuria, frequency, urgency, vaginal discharge or bleeding, etc. Past medical history, family history, personal and social histories are all otherwise unremarkable and noncontributory or otherwise unchanged from a recent admitting and discharge summaries. She has been on Aldactazide, Lasix, and morphine. PHYSICAL EXAMINATION: Blood pressure is 116/82 with a pulse of 77, respirations of 32 and she is afebrile. In general she appeared to be pale, chronically ill. She started to become cachectic. Skin was dry. Head, ears, eyes, nose, mouth, and throat were normal. Neck was supple. Neck veins not distended. Chest is clear. Cardiac exam demonstrates sinus rhythm. Abdomen was very distended and generally tender throughout due to the ascites. Liver was enlarged and could be felt about 6 inches below the right costal margin. Bowel sounds are present. Extremities are normal. Neurologically intact. IMPRESSION: She is admitted to the hospital with diagnoses: Metastatic breast cancer involving predominantly the liver with portal hypertension and intractable ascites. PLAN: 1. Bed rest. 2. IV fluids. 3. Analgesics. 4. Consult with Interventional Radiology. MMODL / IJN: [id number] /
--- NOTE | 2018-10-07 18:33 | DS ---
DISCHARGE SUMMARY CHIEF COMPLAINT: Abdominal pain and ascites. HISTORY OF PRESENT ILLNESS AND PHYSICAL EXAM: Details of this lady's history and physical can be found in the initial workup. LABORATORY STUDIES: While she was in the hospital, she had laboratory studies, details of which can be found laboratory section of her chart. COURSE IN HOSPITAL: After admission, she was placed on bedrest, started intravenous fluids and analgesics. She is seen by Interventional Radiology and after her paracentesis, it was felt she could go home. She will go home on her usual activity, diet, medications, and she will follow up in the office. FINAL DIAGNOSES: Intractable abdominal pain and ascites due to the hepatic metastases from breast cancer. OPERATIONS: Paracentesis. CONSULTATIONS: Interventional Radiology. She is improved. MMODL / IJN: [id number] /
--- NOTE | 2018-10-12 13:40 | CDI ---
Outpatient Documentation Clarification Form Date: 10-12-18 CDS/Gas Manager Name: EMILIE LORD Phone: If you have question, contact Rose Mary Canc[employer] Marine Designer at [phone] M-F 8:30 am to 6pm. Patient Name: TERESA VALENZUELA Admit Date: 10-06-18 Discharge Date: 10-07-18 ATTENTION: The Clinical Documentation Specialists (CDI) and [facility] Coding Staff appreciate your assistance in clarifying documentation. Please respond to the clarification below the line at the bottom and electronically sign. The CDI & [facility] Coding staff will review the response and follow-up if needed. Please note: Queries are made part of the Legal Health Record. If you have any questions, please contact the author of this message via ITS or call the Marine Designer. , Please specify below the line the ascites: -Malignant -Non-malignant -Unspecified Thank you for your time. Emilie Lord MTDD
--- NOTE | 2018-10-25 12:10 | MISC ---
MISCELLANOUS REPORT I do not understand the question, please specify below the line ascites. It is a malignant. MMODL / IJN: [id number] /
== END 2018-10-07 16:16 | disposition home or self-care (01) ==
LOC: EC 12:17 → 4MS4W 15:30
PROVIDERS: ADMIT Family Medicine; ATTEND Family Medicine
DX: C78.7 Secondary malignant neoplasm of liver and intrahepatic bile duct (principal); R18.0 Malignant ascites; K76.6 Portal hypertension; C50.919 Malignant neoplasm of unspecified site of unspecified female breast; I25.10 Atherosclerotic heart disease of native coronary artery without angina pectoris; E78.5 Hyperlipidemia, unspecified; I25.2 Old myocardial infarction; E03.9 Hypothyroidism, unspecified; Z79.899 Other long term (current) drug therapy; Z79.891 Long term (current) use of opiate analgesic; Z87.01 Personal history of pneumonia (recurrent); Z85.42 Personal history of malignant neoplasm of other parts of uterus; Z95.5 Presence of coronary angioplasty implant and graft; Z90.710 Acquired absence of both cervix and uterus; Z82.49 Family history of ischemic heart disease and other diseases of the circulatory system
CPT/HCPCS: 96376 ×2; 96374; 99285; 36415; 80053; 83690; 85025; 85610; 85730; 81001; 49083; G0378 ×2; J2270 ×2